=== PATIENT | female | born 1990 | race Caucasian/White ===

== ENCOUNTER 2020-03-27 12:24 | Outpatient (REF) | payer OTHER, SELFPAY ==
[2020-03-29 21:32] LABS: TS Negative Control Passed; TS Panel A 0; TS Panel B 1; TS Positive Control Passed; TSpotTB Negative (SeeBelow)
== END 2020-03-27 12:25 | disposition home or self-care (01) ==
LOC: HO.HMGCLDS 12:24
PROVIDERS: PCP Nurse Practitioner Family; Visit Provider Nurse Practitioner Family
DX: Z11.1 Encounter for screening for respiratory tuberculosis (principal)
CPT/HCPCS: 86481

== ENCOUNTER 2020-04-04 13:08 | Outpatient (REF) | payer OTHER, SELFPAY ==
--- NOTE | 2020-04-04 13:11 | XR_ITS ---
EXAMINATION: XR SHOULDER, LEFT CLINICAL INFORMATION: Left shoulder pain. COMPARISON: None. TECHNIQUE: AP external rotation, Grashey, scapular Y, and axillary views of the left shoulder. FINDINGS: The bones and soft tissues are normal. No fracture. Glenohumeral and acromioclavicular alignment is anatomic with normal joint space. No abnormal soft tissue calcifications. XR/XR shoulder LT min 2V IMPRESSION: Unremarkable examination.
== END 2020-04-04 13:09 | disposition home or self-care (01) ==
LOC: HO.HMGCX 13:08
PROVIDERS: PCP Nurse Practitioner Family; Visit Provider Nurse Practitioner Family
DX: M25.512 Pain in left shoulder (principal)
CPT/HCPCS: 73030

== ENCOUNTER 2020-04-04 14:00 | Outpatient (RCR) | payer OTHER, SELFPAY ==
--- NOTE | 2020-05-04 09:34 | MHC.PT.DC ---
[facility] [place] Office [place] [facility] [place] Office [address] Sharda Blunt [address] [phone] F: [phone] F: [phone] F: [phone] F: [phone] Physical Therapy Discharge Report Diagnosis: Neck pain Date of Surgery: NA Date of Evaluation: 01/11/20 Date of Discharge: 05/04/20 Treatments to Date: 16 Cancellations to Date: 1 No Shows to Date: 1 Discharge Status: Patient Elected to Stop Recommend MD Follow-up Discharge Summary: Patient without symptoms reported with traction but once in sitting reporting elbow symptoms on occasion and UT at the last tx session. Trialed stim again for B UT as she has a hard time relaxing with tx. As she has made little progress with PT I recommended holding at this time to see what MD suggests and what images say and patient in agreement. Kept chart open for 30 days. DC to HEP at this time. Electronically signed by: Raquel Monae PT Please sign and return to therapist. Thank you for your referral.
== END 2020-05-04 09:35 | disposition home or self-care (01) ==
LOC: HO.PTCHIC 14:00
PROVIDERS: PCP Nurse Practitioner Family; Visit Provider Nurse Practitioner Family
DX: M50.90 Cervical disc disorder, unspecified, unspecified cervical region (principal)
CPT/HCPCS: 97012; 97014; 97110; 97140; 97530

== ENCOUNTER 2020-04-26 14:10 | Outpatient (REF) | payer OTHER, SELFPAY ==
--- NOTE | 2020-04-26 14:13 | MR_ITS ---
EXAMINATION: MR CERVICAL SPINE WITHOUT CONTRAST CLINICAL INFORMATION: Spondylosis without myelopathy. COMPARISON: None TECHNIQUE: MRI of the cervical spine was obtained using routine sequences without contrast. Limited study with motion artifacts. FINDINGS: VERTEBRAL BODIES AND PARASPINAL SOFT TISSUES: The marrow signal is homogeneous. There are no compression fractures or subluxations. Mild reversal of the normal cervical lordosis evident. There is mild disc space narrowing with endplate spurring at the C5-C6 level. No marrow or soft tissue edema is visible. The paraspinal soft tissues are unremarkable. The imaged lung apices are grossly clear. CERVICOMEDULLARY JUNCTION AND VISUALIZED POSTERIOR FOSSA: The craniovertebral junction and imaged portions of the brain parenchyma appear normal. No cord signal abnormality or syrinx is seen. SPINAL LEVELS: C2-C3: Well-hydrated normal appearance of the disc. C3-C4: Very mild right lateral disc bulge and uncovertebral joint spurring without foraminal encroachment. C4-C5: No disc pathology evident. C5-C6: Large left posterolateral disc extrusion distorting the left ventrolateral aspect of the cord and likely impinging upon the left C6 nerve root with significant encroachment upon the left subarticular zone. No central canal stenosis. C6-C7: Shallow central disc protrusion and mild anterior endplate spurring. C7-T1: No disc abnormality evident. MR/MR cervical spine wo con IMPRESSION: Large left posterolateral disc extrusion at C5-C6 distorting the left ventrolateral aspect of the cord and likely impinging upon the left C6 nerve root. Shallow central disc protrusion and mild endplate spurring at C6-C7.
== END 2020-04-26 14:11 | disposition home or self-care (01) ==
LOC: HO.MRI 14:10
PROVIDERS: Visit Provider Nurse Practitioner Family
DX: M47.812 Spondylosis without myelopathy or radiculopathy, cervical region (principal); M54.12 Radiculopathy, cervical region
CPT/HCPCS: 72141

== ENCOUNTER 2020-10-17 18:49 | Outpatient (REF) | payer OTHER, SELFPAY ==
--- NOTE | ~2020-10-17 | MR_ITS ---
EXAMINATION: MR LUMBAR SPINE WITHOUT CONTRAST CLINICAL INFORMATION: Numbness, tingling. Bilateral leg pain, numbness, weakness. COMPARISON: Lumbar spine radiographs dated 08/05/2011. TECHNIQUE: MRI of the lumbar spine was obtained using routine sequences without contrast. FINDINGS: VERTEBRAL BODIES AND PARASPINAL STRUCTURES: Redemonstration of a transitional anatomy with partial lumbarization of the S1 vertebral body. This is similar when compared to the prior radiographs. The examination is labeled as such on a single image. The lumbar lordosis is maintained. No acute fracture or subluxation. No loss of vertebral body height. Mild loss of intervertebral disc height with disc desiccation at L5-S1. More mild disc desiccation at L4-L5. No marrow edema to suggest acute osseous injury. The visualized paraspinal soft tissues are unremarkable. CONUS MEDULLARIS AND CAUDA EQUINA: Normal, terminating at the level of L1. SPINAL LEVELS: T12-L1: No significant disc bulge. No central canal or neural foraminal stenosis. L1-L2: No significant disc bulge. No central canal or neural foraminal stenosis. L2-L3: No significant disc bulge. Bilateral facet arthropathy. Minimal bilateral neural foraminal stenosis. L3-L4: No significant disc bulge. Bilateral facet arthropathy. Minimal bilateral neural foraminal stenosis. L4-L5: Shallow disc bulge. Bilateral facet arthropathy and thickening of the ligamentum flavum which encroaches upon the traversing bilateral L5 nerve roots. Minimal bilateral neural foraminal stenosis. L5-S1: Broad-based disc bulge with posterior annular fissuring, prominent bilateral facet arthropathy, and thickening of the ligamentum flavum which causes [id number] central canal stenosis and encroaches upon the traversing bilateral S1 nerve roots in the lateral recesses. Mild bilateral neural foraminal stenosis. S1-S2: Minimal disc bulge with mild bilateral facet arthropathy. No significant central canal or neural foraminal stenosis. MR/MR lumbar spine wo con IMPRESSION: 1. 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 2. Broad-based disc bulge at L5-S1 with posterior annular fissuring, prominent bilateral facet arthropathy, and thickening of the ligamentum flavum causing [id number] central canal stenosis encroaching upon the traversing bilateral S1 nerve roots. Additionally, there is mild bilateral neural foraminal stenosis. 3. Shallow disc bulge and bilateral facet arthropathy at L4-L5 with thickening of the ligamentum flavum which encroaches upon the traversing bilateral L5 nerve roots and causes minimal bilateral neural foraminal stenosis. 4. Bilateral facet arthropathy at L2-L3 and L3-L4 with minimal bilateral neuroforaminal stenosis. 5. Minimal disc bulge at S1-S2 with mild bilateral facet arthropathy. No central canal or neural foraminal stenosis.
== END 2020-10-17 18:50 | disposition home or self-care (01) ==
LOC: HO.MRI 18:49
PROVIDERS: Visit Provider Hospitalist
DX: R20.2 Paresthesia of skin (principal)
CPT/HCPCS: 72148

== ENCOUNTER 2020-11-20 09:59 | Outpatient (REF) | payer OTHER, SELFPAY ==
[2020-11-20 11:06] LABS: MANUAL DIFF FLAG NO
[2020-11-20 11:21] LABS: Basophils Percent Auto 0.3 % (0-2); Eosinophils Absolute Auto 0.2 X10*3/uL (0.0-0.4); Eosinophils Percent Auto 1.8 % (0-4); Hematocrit 37.4 % (37-47); Hemoglobin 12.1 g/dl (12.0-16.0); Imm Gran Abs Auto 0.05 X10*3/uL (0.00-0.03); Imm Gran Pct Auto 0.5 % (0.0-0.4); Lymphocytes Absolute Auto 2.2 X10*3/uL (1.2-4.9); Lymphocytes Percent Auto 20.2 % (20-40); Mean Corpuscular HGB Conc 32.4 g/dl (31.0-35.0); Mean Corpuscular Hemoglobin 29.9 pg (27.0-33.0); Mean Corpuscular Volume 92.3 fL (80-98); Mean Platelet Volume 12.3 fL (9.4-12.3); Monocytes Absolute Auto 0.6 X10*3/uL (0.1-1.2); Monocytes Percent Auto 5.4 % (2-11); Neutrophils Absolute Auto 7.7 X10*3/uL (2.0-8.3); Neutrophils Percent Auto 71.8 % (45-73); Platelet Count 234 X10*3/uL (160-400); Red Blood Count 4.05 X10*6/uL (4.20-5.50); Red Cell Distribution Width 11.8 % (11.0-16.0); White Blood Count 10.7 X10*3/uL (4.8-10.8)
[2020-11-20 11:30] LABS: Alanine Aminotransferase 10 U/L (0-31); Albumin Level 4.2 g/dL (3.5-5.0); Alkaline Phosphatase 62 U/L (39-117); Anion Gap 10 (12-20); Aspartate Amino Transferase 13 U/L (5-31); Bilirubin Total 0.3 mg/dL (0.0-1.0); Blood Urea Nitrogen 10 mg/dL (9-16); Calcium 8.8 mg/dL (8.4-10.2); Carbon Dioxide 26 mmol/L (22-29); Chloride 106 mmol/L (96-108); Cholesterol 117 mg/dL; Estimated Glomerular Filt Rate > 60; Glucose Fasting 88 mg/dL (60-99); HDL Cholesterol 47 mg/dL; Iron 61 mcg/dL (30-160); LDL Cholesterol Calculated 59 mg/dl; Percent Iron Saturation 18 % (15-50); Potassium 4.2 mmol/L (3.3-5.1); Sodium 138 mmol/L (135-145); Total Iron Binding Capacity 336 mcg/dL (228-428); Total Protein 7.5 g/dL (6.5-8.0); Triglycerides 59 mg/dL; Unsaturated Iron Binding 275 ug/dL
[2020-11-20 11:54] LABS: Ferritin 65 ng/mL (10-122); Vitamin D 25-OH Total 22.8 ng/mL (>30)
[2020-11-20 11:59] LABS: Folate 13.1 ng/mL (> or = 4.0); Vitamin B12 258 pg/mL (200-900)
== END 2020-11-20 10:00 | disposition home or self-care (01) ==
LOC: HO.HMGCLDS 09:59
PROVIDERS: PCP Nurse Practitioner Family; Visit Provider Nurse Practitioner Family
DX: Z00.00 Encounter for general adult medical examination without abnormal findings (principal); R53.83 Other fatigue
CPT/HCPCS: 36415; 80053; 80061; 82306; 82607; 82728; 82746; 83540; 84443; 85025

== ENCOUNTER 2021-01-22 09:04 | Outpatient (REF) | payer OTHER, SELFPAY ==
[2021-01-25 16:31] LABS: TS Negative Control Passed; TS Panel A 1; TS Panel B 1; TS Positive Control Passed; TSpotTB Negative (SeeBelow)
== END 2021-01-22 09:05 | disposition home or self-care (01) ==
LOC: HO.HMGCLDS 09:04
PROVIDERS: PCP Nurse Practitioner Family; Visit Provider Nurse Practitioner Family
DX: Z11.1 Encounter for screening for respiratory tuberculosis (principal)
CPT/HCPCS: 36415; 86481

== ENCOUNTER 2021-11-13 10:18 | Outpatient (REF) | payer OTHER, SELFPAY ==
[2021-11-13 11:16] LABS: MANUAL DIFF FLAG NO
[2021-11-13 11:25] LABS: Basophils Percent Auto 0.2 % (0-2); Eosinophils Absolute Auto 0.2 X10*3/uL (0.0-0.4); Eosinophils Percent Auto 1.9 % (0-4); Hemoglobin 12.5 g/dl (12.0-16.0); Imm Gran Abs Auto 0.04 X10*3/uL (0.00-0.03); Imm Gran Pct Auto 0.4 % (0.0-0.4); Lymphocytes Absolute Auto 2.5 X10*3/uL (1.2-4.9); Lymphocytes Percent Auto 22.6 % (20-40); Mean Corpuscular HGB Conc 32.9 g/dl (31.0-35.0); Mean Corpuscular Hemoglobin 29.6 pg (27.0-33.0); Mean Corpuscular Volume 89.8 fL (80.0-98.0); Mean Platelet Volume 11.9 fL (9.4-12.3); Monocytes Absolute Auto 0.5 X10*3/uL (0.1-1.2); Monocytes Percent Auto 4.7 % (2-11); Neutrophils Absolute Auto 7.6 x10*3/uL (2.0-8.3); Neutrophils Percent Auto 70.2 % (45-73); Platelet Count 244 X10*3/uL (160-400); Red Blood Count 4.23 X10*6/uL (4.20-5.50); Red Cell Distribution Width 11.9 % (11.0-16.0); White Blood Count 10.8 X10*3/uL (4.8-10.8)
[2021-11-13 11:31] LABS: Appearance Urine CLEAR; Color Urine YELLOW; Glucose Urine UA NEG (NEG); Leukocyte Esterase Urine TRACE (NEG); Nitrite Urine NEG (NEG); UACC Culture Trigger NO; Urine Blood TRACE (NEG); Urine Ketones NEG (NEG); Urine Protein NEG (NEG-TRACE)
[2021-11-13 11:46] LABS: Bacteria Urine 3+ /LPF; RBC Urine 0-2 /HPF (0); Squamous Epithelial Cell Urine 3+ /LPF
[2021-11-13 11:56] LABS: Alanine Aminotransferase 14 U/L (0-31); Albumin Level 4.7 g/dL (3.5-5.0); Alkaline Phosphatase 78 U/L (39-117); Anion Gap 12 (12-20); Aspartate Amino Transferase 15 U/L (5-31); Bilirubin Total 0.5 mg/dL (0.0-1.0); Blood Urea Nitrogen 11 mg/dL (9-16); Calcium 9.1 mg/dL (8.4-10.2); Carbon Dioxide 24 mmol/L (22-29); Chloride 106 mmol/L (96-108); Cholesterol 121 mg/dL; Estimated Glomerular Filt Rate > 60; Glucose Fasting 84 mg/dL (60-99); HDL Cholesterol 46 mg/dL; LDL Cholesterol Calculated 60 mg/dl; Potassium 4.4 mmol/L (3.3-5.1); Sodium 138 mmol/L (135-145); Total Protein 8.2 g/dL (6.5-8.0); Triglycerides 75 mg/dL
[2021-11-13 12:18] LABS: TSH reflex Free T4 2.22 uIU/mL (0.32-4.0); Vitamin D 25-OH Total 28.6 ng/mL (>30)
== END 2021-11-13 10:19 | disposition home or self-care (01) ==
LOC: HO.HMGCLDS 10:18
PROVIDERS: PCP Nurse Practitioner Family; Visit Provider Nurse Practitioner Family
DX: Z00.00 Encounter for general adult medical examination without abnormal findings (principal); E55.9 Vitamin D deficiency, unspecified
CPT/HCPCS: 36415; 80053; 80061; 81001; 82306; 84443; 85025

== ENCOUNTER 2022-01-17 14:48 | Outpatient (REF) | payer OTHER, SELFPAY ==
--- NOTE | ~2022-01-17 | US_ITS ---
EXAMINATION: US PELVIS CLINICAL INFORMATION: Pelvic and perineal pain COMPARISON: None TECHNIQUE: Ultrasound of the pelvis is performed using both transabdominal and transvaginal transducers along with Doppler. Transvaginal imaging is performed due to inadequate visualization transabdominally. FINDINGS: Uterus: The uterus is anteverted and measures 8.3 x 3.9 x 4.5 cm. No focal abnormality except for a single small 6 to 7 mm fibroid. The double wall endometrial thickness is 5 mm. The uterus is smooth in contour and has normal myometrial echogenicity. Adnexa: Both ovaries are visualized. There is normal color flow to the adnexa. There is no ovarian torsion. There is no pelvic ascites or fluid collection. Right ovary measures 2.8 x 2.0 x 2.4 cm. 7.2 mL. Left ovary measures 2.6 x 2.2 x 2.2 cm. 6.7 mL. There is a small simple appearing left ovarian follicle. US/US pelvic and transvaginal IMPRESSION: Small uterine fibroid. Otherwise unremarkable pelvic ultrasound examination.
--- NOTE | ~2022-01-17 | XR_ITS ---
EXAMINATION: XR CHEST CLINICAL INFORMATION: Cough COMPARISON: 01/11/2016 TECHNIQUE: 2 views of the chest were obtained. FINDINGS: No significant abnormality is noted involving the heart, lungs, mediastinum, bony thorax or soft tissues. XR/XR chest 2V IMPRESSION: Unremarkable examination.
== END 2022-01-17 14:49 | disposition home or self-care (01) ==
LOC: HO.HMGCX 14:48
PROVIDERS: PCP Nurse Practitioner Family; Visit Provider Physician Assistant Medical
DX: R10.2 Pelvic and perineal pain (principal); R05.9 Cough, unspecified
CPT/HCPCS: 71046; 76830; 76856

== ENCOUNTER 2022-11-05 08:58 | Outpatient (AMB) | payer OTHER, SELFPAY ==
--- NOTE | 2022-11-05 09:00 | A.OFFPC_ITS ---
Vital Signs 11/05/22 09:01 Height 5 ft 2 in Weight 230 lb 8 oz BMI 42.2 BP 130/82 Blood Pressure Location Rt brachial Position Sitting Pulse 70 Pulse Source Pulse Oximeter Pulse Oximetry (%) 100 Oxygen Delivery Method Room Air Intake Visit Reasons: Annual PE Allergies No Known Allergies [No Known Allergies*] Allergy (Verified 11/05/22 09:28) Medication List - Last Reconciled 11/05/22 by PIPO Dia clonidine HCl 0.1 mg PO BEDTIME meloxicam 15 mg PO DAILY PRN 30 days sertraline 50 mg PO DAILY tizanidine 4 mg PO BEDTIME PRN 20 days Tobacco use date assessed: 11/05/22 Dental Screening Dental Screen Date: 11/05/22 Did you have a dental visit in the last 12 months?: No Did you have a dental problem in the last 6 months where you did not have access to dental care?: No Was dental information given to patient?: Patient has dentist HPI Annual PE HPI Details Pt is here for a PE. Will order labs. 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 Brother No problems noted. Brother No problems noted. Maternal Aunt Mental health disorder Maternal Uncle Mental health disorder Social History Housing: Apartment Alcohol intake: never Patient Tobacco Use Status: Never used Tobacco e-Cigarette/Vaping Use: Never Used Second Hand Smoke Exposure: No service: No Current occupational status: employed Current occupation: [employer] Current occupational exposures/hazards: Yes Cognitive needs: No Hearing needs: No Vision needs: No Questionnaire Thrive Questionnaire Date Thrive assessed: 09/20/21 I am a: Patient What is your living situation today?: I have a steady place to live Within the past 12 months, did the food you bought not last and you didn't have the money to get more?: Never true Within the past 12 months, did you worry whether your food would run out before you got money to buy more?: Never true Please select the resources that you would like help with: None AUDIT C Alcohol Use Questionnaire (AUDIT-C) 1. How often do you have a drink containing alcohol?: 2-4 times a month 2. How many drinks containing alcohol do you have on a typical day when you are drinking?: 3 or 4 3. How often do you have six or more drinks on one occasion?: Less than monthly Total Score: 4 DARRELL-7 AMB Questionnaire DARRELL-7 Date DARRELL - 7 assessed: 09/20/21 Feeling nervous, anxious, or on edge: 1 = Several days Not being able to stop or control worryin = Several days Worrying too much about different things: 2 = More than half the days Trouble relaxin = Nearly every day Being so restless that it is hard to sit still: 2 = More than half the days Becoming easily annoyed or irritable: 2 = More than half the days Feeling afraid as if something awful might happen: 1 = Several days Total DARRELL-7 score (0-4 normal; 5-9 mild; 10-14 moderate; 15-21 severe): 12 Source: Developed by Drs. Riaz Pickens, Geraldine So, Demetris Hoffmann and colleagues, with an educational marsha from [employer]. Review of Systems Const Denies chills and Denies fever(s) Eyes Denies blurry vision ENT Denies vertigo, Denies dizziness and Denies sore throat Card Denies chest pain at rest, Denies chest pain with activity, Denies diaphoresis, Denies dyspnea and Denies dyspnea on exertion Resp Denies cough, Denies dyspnea, Denies dyspnea on exertion and Denies wheezing GI Denies abdominal pain, Denies melena, Denies hematochezia, Denies constipation, Denies diarrhea and Denies loose stools Denies hematuria Musc Denies numbness and Denies tingling Skin/Breast Denies lesions Neuro Denies vertigo, Denies dizziness, Denies numbness and Denies tingling Psych Denies anxiety, Denies depression, Denies homicidal ideation, Denies suicidal ideation and Denies other (substance abuse) Aller/Immun Denies wheezing Physical exam (Primary Care) Vital Signs: Last Vital Signs Pulse 70 11/05/22 09:01 BP 130/82 11/05/22 09:01 Pulse Ox 100 11/05/22 09:01 Oxygen Delivery Method Room Air 11/05/22 09:01 BMI result Body Mass Index 42.2 Tobacco/Smoking Status: Tobacco use Status Tobacco use date assessed 11/05/22 11/05/22 09:07 Patient Tobacco Use Status Never used Tobacco 11/05/22 09:07 e-Cigarette/Vaping Use Never Used 11/05/22 09:07 Thrive Assessment: Date of Thrive Assessment Date Thrive assessed 09/20/21 11/05/22 09:07 Const General: cooperative Nutritional Appearance: obese morbidly obese Orientation/consciousness: patient oriented x3 HENMT Head: Yes normal to inspection, Yes normocephalic and Yes atraumatic Ears: TM's normal bilaterally Eyes General: appearance normal, both eyes and all related structures Alignment and Position: alignment normal and position normal Neck Neck: Yes normal visual inspection and Yes no lymphadenopathy Thyroid: Thyroid normal Resp Effort & Inspection: normal respiratory effort Auscultation: clear to auscultation bilaterally Cardio Rate: regular rate Rhythm: regular rhythm Heart sounds: S1 normal heart sound present, S2 normal heart sound present and Murmur heart sound present systolic GI Palpation (GI): Soft to palpation and nontender Auscultation: normal bowel sounds Skin Rashes: no rashes Neuro General: patient oriented x3, moves all extremities, no focal motor deficits and deep tendon reflexes 2+ bilaterally Romberg Test: Negative Psych Appearance: grossly normal Mental Status: mental status grossly normal Speech and movement: Normal speech and movement present Affect: normal affect Attitude: cooperative Thought process: Normal thought process present Thought content: Normal thought content present Insight: Good insight present (Psych) Judgement: Good judgement present (Psych) Assessment and Plan Assessment & Plan (1) Physical exam: Code(s): Z00.00 - Encounter for general adult medical examination without abnormal f indings Plan: Labs ordered (2) Systolic murmur: Code(s): R01.1 - Cardiac murmur, unspecified Plan: Echo ordered Plan The patient agreed to the use of a director of graduate medical education for this encounter. Scribed for PIPO Snyder by Essie Asher director of graduate medical education, on 11/05/2022 at 09:20 EST. Orders: Orders Comprehensive [place]. Panel Fast Today Z00.00 - Encounter for general adult medical examination without abnormal findings Lipid Panel Today Z00.00 - Encounter for general adult medical examination without abnormal findings TSH reflex Free T4 Today Z00.00 - Encounter for general adult medical examination without abnormal findings Complete Blood Count Auto Diff Today Z00.00 - Encounter for general adult medical examination without abnormal findings UA CC w/rflx Micro + Cult Today Z00.00 - Encounter for general adult medical examination without abnormal findings CA echo transthoracic complete Today R01.1 - Cardiac murmur, unspecified Coding Level of Care Code Est Pt Prev Care 18-39y(51826) Diagnoses Physical exam Z00.00 Systolic murmur R01.1
[2022-11-05 09:01] VITALS: BP 130/82; PULSE 70; O2SAT 100; BMI 42.2
== END 2022-11-05 10:24 | disposition home or self-care (01) ==
PROVIDERS: PCP Nurse Practitioner Family; Visit Provider Nurse Practitioner Family
DX: Z00.00 Encounter for general adult medical examination without abnormal findings (principal); R01.1 Cardiac murmur, unspecified
CPT/HCPCS: 99395

== ENCOUNTER → 2022-12-06 09:33 | Outpatient (REF) | payer OTHER, SELFPAY ==
--- NOTE | 2022-12-06 09:39 | CA_ITS ---
Transthoracic Echocardiogram Patient (Last, First, Middle): Teresa Silva, Gender: Female Date of : 1990 Age: 32 Procedure Date: 12/06/2022 Procedure Type: Transthoracic Echocardiogram Location: OP Height: 157.48 cm Weight: 102.97 kg BSA: 2.02 m2 Heart Rate: 63 bpm BP: 150 / 90 mmHg Programming Intern: ALFREDO Referring MD: Ry Lemos [facility] Symptoms: R01.1 - Cardiac murmur, unspecified Study Quality: Fair ECG Rhythm: Arrhythmia Conclusions: - Normal right ventricular cavity size and systolic function. - Mildly increased left ventricular cavity size. There is mildly increased left ventricular wall thickness. The left ventricular systolic function is normal. The visually estimated ejection fraction is between 55-60%. There is no evidence of regional wall motion abnormalities. Diastolic function is normal for age. Findings Left Ventricle Mildly increased left ventricular cavity size. There is mildly increased left ventricular wall thickness. The left ventricular systolic function is normal. The visually estimated ejection fraction is between 55-60%. There is no evidence of regional wall motion abnormalities. Diastolic function is normal for age. Right Ventricle Normal right ventricular cavity size and systolic function. Atria The left atrium is normal in size. The right atrium is normal in size. Aortic Valve Normal aortic valve structure and function. There is no aortic valve stenosis. There is no aortic valve regurgitation. Mitral Valve Normal mitral valve structure and function. There is no mitral valve regurgitation. There is no mitral valve stenosis. Pulmonic Valve Normal pulmonic valve structure and function. There is no pulmonic valve regurgitation. Tricuspid Valve Normal tricuspid valve structure. There is no tricuspid valve regurgitation. Normal right atrial pressure. There is no evidence of pulmonary hypertension. Great Vessels All visible segments of the aorta are normal in size. The visualized portions of the pulmonary artery and branches are normal. Venous The inferior vena cava is normal in size and collapses greater than 50% with inspiration. Pericardium/Pleural There is no evidence of pericardial effusion. Prior Study Comparison Changes noted compared to prior study dated: 04/25/2017. Measurements 2D Linear Measurements IVSd: 1.10 0.6-0.9/0.6-1.0 cm LVIDd: 5.00 3.9-5.3/4.2-5.9 cm LVIDd Index: 2.48 2.4-3.2/2.2-3.1 cm/m2 LVIDs: 2.80 2.0-3.6 cm LVPWd: 1.00 0.7-1.1 cm LA Diam: 3.50 2.7-3.8/3.0-4.0 cm LAIDs Index: 1.73 1.5-2.3 cm/m2 LV Mass: 242.23 67-162/88-224 g LV Mass Index: 119.91 43-95/49-115 g/m2 LVOT Diam: 1.90 3.0+(-)1.3 cm 2D Systolic Function EF 4C: 54.10 >55% EF 2C: 75.60 >55% EF BiP: 64.50 >55% Mitral Valve MV Pk E: 1.18 MV PK A: 0.56 MV Decel Time: 167.00 E/A: 2.10 E'Lateral: 11.50 E'Medial: 10.10 E/E' Med: 11.70 E/E' Lat: 10.30 PHT: 49.00 MVA PHT: 4.49 Decel Rogers: 7.08 Aortic Valve AoV Pk Abel: 1.43 AoV Mn Abel: 1.04 AoV VTI: 0.31 AoV Pk Grad: 8.00 Aov Mn Grad: 5.00 SVETLANA Cont.VTI: 1.92 LVOT LVOT Pk Abel: 0.93 LVOT Mn Abel: 0.70 LVOT VTI: 0.21 LVOT Pk Grad: 3.00 LVOT Mn Grad: 2.00 LVOT Diam: 1.90 LVOT Area: 2.84 Diastolic Function MV Pk E: 1.18 MV Pk A: 0.56 E/A: 2.10 E'Medial: 10.10 E/E' Med: 11.70 E' Laterial: 11.50 E/E' Lat: 10.30 Right Ventricle TAPSE (mm): 18.70 TVS' Abel: 11.90 Tricuspid Valve TR Pk Abel: 1.92 TR Pk Grad: 15.00 RA Press: 8.00 RVSP: 23.00 Great Vessels Aorta Sinus of Valsalva: 3.10 2.0-3.5 cm Ao Asc: 3.20 2.1-3.4 cm Pulmonary Valve PV Pk Abel: 1.09 Peak PV Grad: 5.00 Updated in Other Vendor System with Status of Final Brian Gomez MD electronically signed on 12/08/2022 5:27:19 PM with status of Final
[2022-12-06 09:51] LABS: MANUAL DIFF FLAG NO
[2022-12-06 10:29] LABS: Basophils Percent Auto 0.2 % (0-2); Eosinophils Absolute Auto 0.2 X10*3/uL (0.0-0.4); Eosinophils Percent Auto 1.7 % (0-4); Hematocrit 37.5 % (37.0-47.0); Hemoglobin 12.3 g/dl (12.0-16.0); Imm Gran Abs Auto 0.03 X10*3/uL (0.00-0.03); Imm Gran Pct Auto 0.3 % (0.0-0.4); Lymphocytes Absolute Auto 2.8 X10*3/uL (1.2-4.9); Lymphocytes Percent Auto 26.2 % (20-40); Mean Corpuscular HGB Conc 32.8 g/dl (31.0-35.0); Mean Corpuscular Volume 91.5 fL (80.0-98.0); Mean Platelet Volume 11.8 fL (9.4-12.3); Monocytes Absolute Auto 0.5 X10*3/uL (0.1-1.2); Monocytes Percent Auto 5.1 % (2-11); Neutrophils Percent Auto 66.5 % (45-73); Platelet Count 222 X10*3/uL (160-400); Red Cell Distribution Width 11.8 % (11.0-16.0); White Blood Count 10.5 X10*3/uL (4.8-10.8)
[2022-12-06 11:21] LABS: Appearance Urine Clear; Color Urine Yellow; Glucose Urine UA Negative (Negative); Leukocyte Esterase Urine Small (1+) (Negative); Nitrite Urine Negative (Negative); Specific Gravity - Urine 1.025 (1.005-1.025); UMIC TRIGGER UACC YES; Urine Blood Negative (Negative); Urine Ketones Negative (Negative); Urine Protein Negative (Neg-Trace)
[2022-12-06 11:23] LABS: Alanine Aminotransferase 18 U/L (0-31); Albumin Level 4.3 g/dL (3.5-5.0); Alkaline Phosphatase 66 U/L (39-117); Anion Gap 11 (12-20); Aspartate Amino Transferase 21 U/L (5-31); Bilirubin Total 0.4 mg/dL (0.0-1.0); Blood Urea Nitrogen 10 mg/dL (9-16); Calcium 9.2 mg/dL (8.4-10.2); Carbon Dioxide 23 mmol/L (22-29); Chloride 109 mmol/L (96-108); Cholesterol 111 mg/dL; Estimated Glomerular Filt Rate > 60; Glucose Fasting 94 mg/dL (60-99); HDL Cholesterol 46 mg/dL; LDL Cholesterol Calculated 57 mg/dl; Potassium 4.2 mmol/L (3.3-5.1); Sodium 139 mmol/L (135-145); Total Protein 7.9 g/dL (6.5-8.0); Triglycerides 43 mg/dL
[2022-12-06 11:24] LABS: Bacteria Urine Trace (None Seen); Hyaline Casts Urine 0-2 /LPF (0-2); RBC Urine 0-2 /HPF (0-2); UACC Culture Trigger YES
[2022-12-06 11:40] LABS: TSH reflex Free T4 2.08 uIU/mL (0.32-4.0)
== END ==
LOC: HO.CARD 09:33
PROVIDERS: PCP Nurse Practitioner Family; Visit Provider Nurse Practitioner Family
DX: R01.1 Cardiac murmur, unspecified (principal); Z00.00 Encounter for general adult medical examination without abnormal findings
CPT/HCPCS: 36415; 80053; 80061; 81001; 84443; 85025; 87086; 93306

== ENCOUNTER → 2022-12-06 09:39 | Outpatient (BNV) | payer OTHER, SELFPAY | PROVIDERS: PCP Nurse Practitioner Family; Visit Provider Internal Medicine Cardiovascular Disease | DX: R01.1 Cardiac murmur, unspecified (principal) | CPT/HCPCS: 93306 ==

== ENCOUNTER 2023-05-08 09:25 | Outpatient (AMB) | payer OTHER, SELFPAY ==
--- NOTE | 2023-05-08 09:26 | A.OFFPC_ITS ---
Vital Signs 05/08/23 09:29 Weight 240 lb BP 120/84 Blood Pressure Location Lt brachial Position Sitting Pulse 88 Pulse Source Pulse Oximeter Pulse Oximetry (%) 98 Oxygen Delivery Method Room Air Intake Visit Reasons: 6 Month follow up Intake Note: Patient here to follow up on back issues. States she been getting a lot of right hip pain when standing too long. Allergies No Known Allergies [No Known Allergies*] Allergy (Verified 05/08/23 09:30) Medication List - Last Reconciled 05/08/23 by PIPO Dia clonidine HCl 0.1 mg PO BEDTIME meloxicam 15 mg PO DAILY PRN 30 days sertraline 50 mg PO DAILY tizanidine 4 mg PO BEDTIME PRN 20 days Tobacco use date assessed: 05/08/23 Dental Screening Dental Screen Date: 05/08/23 Did you have a dental visit in the last 12 months?: Yes Did you have a dental problem in the last 6 months where you did not have access to dental care?: No Was dental information given to patient?: Patient has dentist HPI 6 Month follow up HPI Details obesity: seeing a bariatric specialist for this, going through their program. She plans to have a gastric sleeve. Pt has a therapist and a psychiatrist. Denies any SI and HI. She reports intermittent sciatica. Will send gabapentin to help with pain and sleep. Hoping the surgery will help with her pains, though suggested a stretching routine and warm moist heat [facility] Medical History (Updated 05/08/23 @ 10:08 by PIPO Dia) Left shoulder pain Obesity Chronic fatigue Eczema GERD (gastroesophageal reflux disease) PCOS (polycystic ovarian syndrome) DDD (degenerative disc disease), cervical Depression with anxiety Surgical History History of gynecologic surgery History of section History of wisdom tooth extraction Family History Father HTN (hypertension) Mother HTN (hypertension) Brother No problems noted. Brother No problems noted. Brother No problems noted. Maternal Aunt Mental health disorder Maternal Uncle Mental health disorder Social History Housing: Apartment Alcohol intake: never Patient Tobacco Use Status: Never used Tobacco e-Cigarette/Vaping Use: Never Used Second Hand Smoke Exposure: No service: No Current occupational status: employed Current occupation: [employer] Current occupational exposures/hazards: Yes Cognitive needs: No Hearing needs: No Vision needs: No Questionnaire Thrive Questionnaire Date Thrive assessed: 09/20/21 I am a: Patient What is your living situation today?: I have a steady place to live Within the past 12 months, did the food you bought not last and you didn't have the money to get more?: Never true Within the past 12 months, did you worry whether your food would run out before you got money to buy more?: Never true Please select the resources that you would like help with: None AUDIT C Alcohol Use Questionnaire (AUDIT-C) 1. How often do you have a drink containing alcohol?: 2-4 times a month 2. How many drinks containing alcohol do you have on a typical day when you are drinking?: 7 to 9 3. How often do you have six or more drinks on one occasion?: Less than monthly Total Score: 6 DARRELL-7 AMB Questionnaire DARRELL-7 Date DARRELL - 7 assessed: 09/20/21 Feeling nervous, anxious, or on edge: 2 = More than half the days Not being able to stop or control worryin = More than half the days Worrying too much about different things: 3 = Nearly every day Trouble relaxin = More than half the days Being so restless that it is hard to sit still: 2 = More than half the days Becoming easily annoyed or irritable: 2 = More than half the days Feeling afraid as if something awful might happen: 1 = Several days Total DARRELL-7 score (0-4 normal; 5-9 mild; 10-14 moderate; 15-21 severe): 14 Source: Developed by Drs. Riaz Pickens, Geraldine So, Demetris Hoffmann and colleagues, with an educational marsha from [employer]. Review of Systems Const Reports as per HPI Physical exam (Primary Care) Vital Signs: Last Vital Signs Pulse 88 05/08/23 09:29 BP 120/84 05/08/23 09:29 Pulse Ox 98 05/08/23 09:29 Oxygen Delivery Method Room Air 05/08/23 09:29 Tobacco/Smoking Status: Tobacco use Status Tobacco use date assessed 05/08/23 05/08/23 09:32 Patient Tobacco Use Status Never used Tobacco 05/08/23 09:27 e-Cigarette/Vaping Use Never Used 05/08/23 09:27 Thrive Assessment: Date of Thrive Assessment Date Thrive assessed 09/20/21 05/08/23 09:27 Const General: cooperative Nutritional Appearance: obese Orientation/consciousness: patient oriented x3 Resp Effort & Inspection: normal respiratory effort Auscultation: clear to auscultation bilaterally Cardio Rate: regular rate Rhythm: regular rhythm Heart sounds: S1 normal heart sound present, S2 normal heart sound present and Murmur heart sound present systolic Neuro General: patient oriented x3 Psych Appearance: grossly normal Mental Status: mental status grossly normal Speech and movement: Normal speech and movement present Affect: normal affect Attitude: cooperative Thought process: Normal thought process present Thought content: Normal thought content present Insight: Good insight present (Psych) Judgement: Good judgement present (Psych) Assessment and Plan Assessment & Plan (1) Obesity: Code(s): E66.9 - Obesity, unspecified Plan: continue with bariatric specialist. (2) Sciatica: Code(s): M54.30 - Sciatica, unspecified side Plan: gabapentin started at night Plan The patient agreed to the use of a biomedical engineering internship for this encounter. Scribed for PIPO Snyder by Essie Asher biomedical engineering internship, on 05/08/2023 at 09:40 EST. Medications: New gabapentin 100 mg PO BEDTIME 90 caps 0RF Coding Level of Care Code Est Pt Level 3 (10262) Diagnoses Obesity E66.9 Sciatica M54.30
[2023-05-08 09:29] VITALS: BP 120/84; PULSE 88; O2SAT 98
== END 2023-05-08 11:03 | disposition home or self-care (01) ==
PROVIDERS: PCP Nurse Practitioner Family; Visit Provider Nurse Practitioner Family
DX: M54.30 Sciatica, unspecified side (principal); E66.9 Obesity, unspecified
CPT/HCPCS: 99213

== ENCOUNTER 2023-05-22 13:26 | Outpatient (REF) | payer OTHER, SELFPAY ==
[2023-05-22 16:38] LABS: Appearance Urine Hazy; Color Urine Yellow; Glucose Urine UA 100 mg/dL (Negative); Leukocyte Esterase Urine Trace (Negative); Nitrite Urine Positive (Negative); PH 5.5 (5.0-9.0); Specific Gravity - Urine 1.025 (1.005-1.025); UMIC TRIGGER UACC YES; Urine Blood Trace (Negative); Urine Ketones Negative (Negative); Urine Protein 30 (1+) mg/dL (Neg-Trace)
[2023-05-22 16:48] LABS: Bacteria Urine 4+ (None Seen); Hyaline Casts Urine 0-2 /LPF (0-2); RBC Urine 0-2 /HPF (0-2); Squamous Epithelial Cell Urine 0-2 /HPF (0-2); UACC Culture Trigger YES; WBC Urine >50 /HPF (0-5)
== END 2023-05-22 13:27 | disposition home or self-care (01) ==
LOC: HO.HMGCLDS 13:26
PROVIDERS: PCP Nurse Practitioner Family; Visit Provider Nurse Practitioner Family
DX: R30.0 Dysuria (principal)
CPT/HCPCS: 81001; 87086; 87088; 87186

== ENCOUNTER 2023-07-17 13:32 | Outpatient (AMB) | payer OTHER, SELFPAY ==
--- NOTE | 2023-07-17 13:40 | MHC.PC.OV ---
Vital Signs 07/17/23 13:44 Height 5 ft 2 in Weight 240 lb BMI 43.9 BP 130/82 Blood Pressure Location Lt brachial Position Sitting Pulse 80 Pulse Source Pulse Oximeter Pulse Oximetry (%) 98 Oxygen Delivery Method Room Air Intake Visit Reasons: [facility] ER followup-Ry's pt Intake Note: pt is here for [facility] ER due to chest tightness, SOB. patient states they told her it was acid reflux, ekg and labs done stating it was all normal Manager Fund Required: No Allergies No Known Allergies [No Known Allergies*] Allergy (Verified 07/17/23 13:46) Medication List - Last Reconciled 07/17/23 by PIPO Dia buspirone 5 mg PO BID 30 days clonidine HCl 0.1 mg PO BEDTIME gabapentin 100 mg PO BEDTIME sertraline 50 mg PO DAILY Tobacco use date assessed: 07/17/23 Dental Screening Dental Screen Date: 07/17/23 Did you have a dental visit in the last 12 months?: Yes Did you have a dental problem in the last 6 months where you did not have access to dental care?: No Was dental information given to patient?: Patient has dentist HPI [facility] ER followup-Ry's pt HPI Details Pt was seen in the ER on 07/13 c/o chest pain, epigastric discomfort, and nausea. EKG was nonischemic. Serial troponin was WNL. Chest XR was negative. Pt's nausea improved with zofran. She was given maalox to treat potential GERD which helped her symptoms. Today, pt reports ongoing chest discomfort. She reports that the pain is reproducible with touch and deep breathing. Pt reports some shortness of breath as well. I do think this is more stress/anxiety related/costrochondritis, though I will rule out cardiac or pulmonary causes. EKG in office is benign. Will also order stress test and PFT testing. Will start buspirone 5mg bid. She will contact me via portal with how she is doing in the next week or two. Denies fever, chills, wheezing, and dizziness. NOTE: please see echo, recommend watching her BP as well PFSH Medical History (Updated 07/17/23 @ 14:07 by PIPO Dia) Left shoulder pain Obesity Chronic fatigue Eczema GERD (gastroesophageal reflux disease) PCOS (polycystic ovarian syndrome) DDD (degenerative disc disease), cervical Depression with anxiety Surgical History History of gynecologic surgery History of section History of wisdom tooth extraction Family History Father HTN (hypertension) Mother HTN (hypertension) Brother No problems noted. Brother No problems noted. Brother No problems noted. Maternal Aunt Mental health disorder Maternal Uncle Mental health disorder Social History Housing: Apartment Alcohol intake: never Patient Tobacco Use Status: Never used Tobacco e-Cigarette/Vaping Use: Never Used Second Hand Smoke Exposure: No service: No Current occupational status: employed Current occupation: [employer] Current occupational exposures/hazards: Yes Cognitive needs: No Hearing needs: No Vision needs: No Questionnaire PHQ-9 Over the last 2 weeks, how often have you been bothered by any of the following problems? 1. Little interest or pleasure in doing things: several days 2. Feeling down, depressed, or hopeless: more than half the days 3. Trouble falling or staying asleep, or sleeping too much: more than half the days 4. Feeling tired or having little energy: more than half the days 5. Poor appetite or overeating: not at all 6. Feeling bad about yourself - or that you are a failure or have let yourself or your family down: several days 7. Trouble concentrating on things, such as reading the newspaper or watching television: several days 8. Moving or speaking so slowly that other people could have noticed. Or the opposite - being so fidgety or restless that you have been moving around a lot more than usual: several days 9. Thoughts that you would be better off or of hurting yourself in some way: not at all Total score: 10 Depression Screening Interpretation: Positive Depression Screening Done: Yes 73797 - PHQ-9 Billing: Yes Source: Developed by Drs. Riaz Pickens, Geraldine So, Demetris Hoffmann and colleagues, with an educational marsha from [employer]. Thrive Questionnaire Date Thrive assessed: 07/17/23 I am a: Patient What is your living situation today?: I have a steady place to live Within the past 12 months, did the food you bought not last and you didn't have the money to get more?: Never true Within the past 12 months, did you worry whether your food would run out before you got money to buy more?: Never true Do you have trouble paying for medicines?: No Do you have trouble getting transportation to medical appointments?: No Do you have trouble paying your heating and electricity bill?: No Do you have trouble taking care of your child, family member or friend?: No Do you have trouble with day-to-day activities such as bathing, preparing meals, shopping, managing finances, etc.?: No Are you currently unemployed and looking for a job?: No Are you interested in more education?: No Please select the resources that you would like help with: None Currently or been in a relationship where the following occur: no concerns reported THRIVE Score: 0 AUDIT C Alcohol Use Questionnaire (AUDIT-C) 1. How often do you have a drink containing alcohol?: Monthly or less 2. How many drinks containing alcohol do you have on a typical day when you are drinking?: 1 or 2 3. How often do you have six or more drinks on one occasion?: Never Total Score: 1 Score Reviewed/Action Taken: Yes DARRELL-7 AMB Questionnaire DARRELL-7 Date DARRELL - 7 assessed: 07/17/23 Feeling nervous, anxious, or on edge: 3 = Nearly every day Not being able to stop or control worryin = Nearly every day Worrying too much about different things: 3 = Nearly every day Trouble relaxin = More than half the days Being so restless that it is hard to sit still: 1 = Several days Becoming easily annoyed or irritable: 3 = Nearly every day Feeling afraid as if something awful might happen: 1 = Several days Total DARRELL-7 score (0-4 normal; 5-9 mild; 10-14 moderate; 15-21 severe): 16 Source: Developed by Drs. Riaz Pickens, Geraldine So, Demetris Hoffmann and colleagues, with an educational marsha from [employer] DARRELL-7 Assessment Billing DARRELL-7 Assessment Tool: DARRELL-7 Assessment 12566 Review of Systems Const Reports as per HPI Physical exam (Primary Care) Vital Signs: Last Vital Signs Pulse 80 07/17/23 13:44 BP 130/82 07/17/23 13:44 Pulse Ox 98 07/17/23 13:44 Oxygen Delivery Method Room Air 07/17/23 13:44 BMI result Body Mass Index 43.9 Tobacco/Smoking Status: Tobacco use Status Tobacco use date assessed 07/17/23 07/17/23 13:50 Patient Tobacco Use Status Never used Tobacco 07/17/23 13:40 e-Cigarette/Vaping Use Never Used 07/17/23 13:40 PHQ-9: PHQ-9 Score PHQ-9: Total score 10 07/17/23 16:18 Depression Screening Interpretation: Positive Thrive Assessment: Date of Thrive Assessment Date Thrive assessed 07/17/23 07/17/23 13:50 Currently or been in a relationship where the following occur: no concerns reported Const General: cooperative Nutritional Appearance: obese morbidly obese Orientation/consciousness: patient oriented x3 Chest Other: tenderness with palpation of upper chest Resp Effort & Inspection: normal respiratory effort Auscultation: clear to auscultation bilaterally Cardio Rate: regular rate Rhythm: regular rhythm Heart sounds: S1 normal heart sound present, S2 normal heart sound present and Murmur heart sound present systolic Neuro General: patient oriented x3 Psych Appearance: grossly normal Mental Status: mental status grossly normal Speech and movement: Normal speech and movement present Affect: normal affect Attitude: cooperative Thought process: Normal thought process present Thought content: Normal thought content present Insight: Good insight present (Psych) Judgement: Good judgement present (Psych) Assessment and Plan Assessment & Plan (1) Chest pain: Code(s): R07.9 - Chest pain, unspecified Plan: EKG done in office, stress test and PFT testing ordered, pt will contact me via portal with how she is doing. NSAIDS can be used, any worsening symptoms, ER. Plan The patient agreed to the use of a medical billing representative for this encounter. Scribed for PIPO Snyder by Essie Asher medical billing representative, on 07/17/2023 at 14:05 EST. Orders: Orders AMB EKG-In Office Today R07.9 - Chest pain, unspecified CA stress test Today R07.9 - Chest pain, unspecified Pulmonary Test/Procedure Today R07.9 - Chest pain, unspecified Medications: New buspirone 5 mg PO BID 30 days 60 tabs 2RF Coding Level of Care Code Est Pt Level 3 (71566) Diagnoses Chest pain R07.9 Additional Codes DARRELL-7 Assessment Billing - DARRELL-7 Assessment Tool: DARRELL-7 Assessment 30644 ([id number])
[2023-07-17 13:44] VITALS: BP 130/82; PULSE 80; O2SAT 98; BMI 43.9
== END 2023-07-17 15:05 | disposition home or self-care (01) ==
PROVIDERS: PCP Nurse Practitioner Family; Visit Provider Nurse Practitioner Family
DX: R07.9 Chest pain, unspecified (principal)
CPT/HCPCS: 93000; 99213

== ENCOUNTER → 2023-07-25 10:13 | Outpatient (REF) | payer OTHER, SELFPAY ==
--- NOTE | 2023-07-25 10:17 | CA_ITS ---
Acquisition Time: 2023-07-25 10:33:19 Total Exercise Time: 00:07:10 Test Indications: cp Medications: Protocol: EVERARDO Max HR: 162 BPM 87% of Pred: 186 BPM Max BP: 162/068 mmHG Max Work Load: 8.8 METS Exercise stress test exercise 7 min 10 sec of Everardo protocol achieving 87% MPHR, with mild to moderate SOB, 3/10 chest discomfort at baseline, with 0/10 chest discomfort at peak, without arrhythmias, with normotensive response to exericse, without EKG changes. Breathing returned to normal with rest.Test reviewed with Dr. Gomez Referred By: Ry Lemos Overread By: Bebe Brunson
== END ==
LOC: HO.CARD 10:13
PROVIDERS: PCP Nurse Practitioner Family; Visit Provider Nurse Practitioner Family
DX: R07.9 Chest pain, unspecified (principal)
CPT/HCPCS: 93017

== ENCOUNTER → 2023-07-25 10:17 | Outpatient (BNV) | payer OTHER, SELFPAY | PROVIDERS: PCP Nurse Practitioner Family; Visit Provider Nurse Practitioner | DX: R07.9 Chest pain, unspecified (principal) | CPT/HCPCS: 93016; 93018 ==

== ENCOUNTER 2023-11-11 09:12 | Outpatient (AMB) | payer OTHER, SELFPAY ==
--- NOTE | 2023-11-11 09:13 | A.OFFPC_ITS ---
Vital Signs 11/11/23 09:18 Height 5 ft 2 in BP 124/80 Blood Pressure Location Lt brachial Position Sitting Pulse 70 Pulse Source Pulse Oximeter Pulse Oximetry (%) 98 Oxygen Delivery Method Room Air Intake Visit Reasons: Annual PE Intake Note: Patient here for physical exam. Pap: 2022 due next year Allergies No Known Allergies [No Known Allergies*] Allergy (Verified 11/11/23 09:59) Medication List - Last Reconciled 11/11/23 by PIPO Dia buspirone 5 mg PO BID 30 days clonidine HCl 0.1 mg PO BEDTIME gabapentin 100 mg PO BEDTIME Tobacco use date assessed: 07/17/23 Dental Screening Dental Screen Date: 07/17/23 HPI Annual PE HPI Details pt is here for a PE. Pt had Gastric Sleeve Procedure in August. Pt reports doing good. She has a overhead irrigator. [facility] Medical History Left shoulder pain Obesity Chronic fatigue Eczema GERD (gastroesophageal reflux disease) PCOS (polycystic ovarian syndrome) DDD (degenerative disc disease), cervical Depression with anxiety Surgical History History of sleeve gastrectomy History of gynecologic surgery History of section History of wisdom tooth extraction Family History Father HTN (hypertension) Mother HTN (hypertension) Brother No problems noted. Brother No problems noted. Brother No problems noted. Maternal Aunt Mental health disorder Maternal Uncle Mental health disorder Social History Housing: Apartment Alcohol intake: never Patient Tobacco Use Status: Never used Tobacco e-Cigarette/Vaping Use: Never Used Second Hand Smoke Exposure: No service: No Current occupational status: employed Current occupation: [employer] Current occupational exposures/hazards: Yes Cognitive needs: No Hearing needs: No Vision needs: No Questionnaire PHQ-9 Over the last 2 weeks, how often have you been bothered by any of the following problems? 1. Little interest or pleasure in doing things: not at all 2. Feeling down, depressed, or hopeless: not at all 3. Trouble falling or staying asleep, or sleeping too much: several days 4. Feeling tired or having little energy: several days 5. Poor appetite or overeating: not at all 6. Feeling bad about yourself - or that you are a failure or have let yourself or your family down: not at all 7. Trouble concentrating on things, such as reading the newspaper or watching television: several days 8. Moving or speaking so slowly that other people could have noticed. Or the opposite - being so fidgety or restless that you have been moving around a lot more than usual: not at all 9. Thoughts that you would be better off or of hurting yourself in some way: not at all Total score: 3 Depression Screening Interpretation: Negative (has a therapist and a psychiatrist) Depression Screening Done: Yes 39518 - PHQ-9 Billing: Yes Source: Developed by Drs. Riaz Pickens, Geraldine So, Demetris Hoffmann and colleagues, with an educational marsha from [employer] Thrive Questionnaire Date Thrive assessed: 07/17/23 I am a: Patient What is your living situation today?: I have a steady place to live Within the past 12 months, did the food you bought not last and you didn't have the money to get more?: Never true Within the past 12 months, did you worry whether your food would run out before you got money to buy more?: Never true Do you have trouble paying for medicines?: No Do you have trouble getting transportation to medical appointments?: No Do you have trouble paying your heating and electricity bill?: No Do you have trouble taking care of your child, family member or friend?: No Do you have trouble with day-to-day activities such as bathing, preparing meals, shopping, managing finances, etc.?: No Are you currently unemployed and looking for a job?: No Are you interested in more education?: No Please select the resources that you would like help with: Housing/Fci Currently or been in a relationship where the following occur: No concerns reported THRIVE Score: 0 AUDIT C Alcohol Use Questionnaire (AUDIT-C) 1. How often do you have a drink containing alcohol?: Monthly or less 2. How many drinks containing alcohol do you have on a typical day when you are drinking?: 1 or 2 3. How often do you have six or more drinks on one occasion?: Less than monthly Total Score: 2 Score Reviewed/Action Taken: Yes DARRELL-7 AMB Questionnaire DARRELL-7 Date DARRELL - 7 assessed: 07/17/23 Feeling nervous, anxious, or on edge: 1 = Several days Not being able to stop or control worryin = Several days Worrying too much about different things: 1 = Several days Trouble relaxin = Several days Being so restless that it is hard to sit still: 1 = Several days Becoming easily annoyed or irritable: 2 = More than half the days Feeling afraid as if something awful might happen: 1 = Several days Total DARRELL-7 score (0-4 normal; 5-9 mild; 10-14 moderate; 15-21 severe): 8 Source: Developed by Drs. Riaz Pickens, Geraldien So, Demetris Hoffmann and colleagues, with an educational marsha from [employer] DARRELL-7 Assessment Billing DARRELL-7 Assessment Tool: DARRELL-7 Assessment 42518 Review of Systems Const Denies chills and Denies fever(s) Eyes Denies blurry vision ENT Denies vertigo, Denies dizziness and Denies sore throat Card Denies chest pain at rest, Denies chest pain with activity, Denies diaphoresis, Denies dyspnea and Denies dyspnea on exertion Resp Denies cough, Denies dyspnea, Denies dyspnea on exertion and Denies wheezing GI Denies abdominal pain, Denies melena, Denies hematochezia, Denies constipation, Denies diarrhea and Denies loose stools Denies hematuria Musc Denies numbness and Denies tingling Skin/Breast Denies lesions Neuro Denies vertigo, Denies dizziness, Denies numbness and Denies tingling Psych Denies anxiety, Denies depression, Denies homicidal ideation, Denies suicidal ideation and Denies other (substance abuse) Aller/Immun Denies wheezing Physical exam (Primary Care) Vital Signs: Last Vital Signs Pulse 70 11/11/23 09:18 BP 124/80 11/11/23 09:18 Pulse Ox 98 11/11/23 09:18 Oxygen Delivery Method Room Air 11/11/23 09:18 Tobacco/Smoking Status: Tobacco use Status Tobacco use date assessed 07/17/23 11/11/23 09:14 Patient Tobacco Use Status Never used Tobacco 11/11/23 09:14 e-Cigarette/Vaping Use Never Used 11/11/23 09:14 PHQ-9: PHQ-9 Score PHQ-9: Total score 3 11/11/23 09:14 Depression Screening Interpretation: Negative (has a therapist and a psychiatrist) Thrive Assessment: Date of Thrive Assessment Date Thrive assessed 07/17/23 11/11/23 09:14 Currently or been in a relationship where the following occur: No concerns reported Const General: cooperative Nutritional Appearance: well nourished and obese Orientation/consciousness: patient oriented x3 HENMT Head: Yes normal to inspection, Yes normocephalic and Yes atraumatic Ears: TM normal on the right and TM normal on the left Eyes General: appearance normal, both eyes and all related structures Alignment and Position: alignment normal and position normal Neck Neck: Yes normal visual inspection and Yes no lymphadenopathy Resp Effort & Inspection: normal respiratory effort Auscultation: clear to auscultation bilaterally Cardio Rate: regular rate Rhythm: regular rhythm Heart sounds: S1 normal heart sound present, S2 normal heart sound present and Murmur heart sound present systolic GI Palpation (GI): Soft to palpation and nontender Auscultation: normal bowel sounds Skin Other: 5 abd lap sites, healed Rashes: no rashes Neuro General: patient oriented x3, moves all extremities, no focal motor deficits and deep tendon reflexes 2+ bilaterally Romberg Test: Negative Extrem Right lower extremity: no edema Left lower extremity: no edema Psych Affect: normal affect Attitude: cooperative Thought process: Normal thought process present Assessment and Plan Assessment & Plan (1) Physical exam: Code(s): Z00.00 - Encounter for general adult medical examination without abnormal findings Plan labs ordered Coding Level of Care Code Est Pt Prev Care 18-39y(30513) Diagnoses Physical exam Z00.00 Additional Codes DARRELL-7 Assessment Billing - DARRELL-7 Assessment Tool: DARRELL-7 Assessment 14333 ([id number])
[2023-11-11 09:18] VITALS: BP 124/80; PULSE 70; O2SAT 98
== END 2023-11-11 09:56 | disposition home or self-care (01) ==
PROVIDERS: PCP Nurse Practitioner Family; Visit Provider Nurse Practitioner Family
DX: Z00.00 Encounter for general adult medical examination without abnormal findings (principal)
CPT/HCPCS: 99395

== ENCOUNTER → 2024-09-15 08:51 | Outpatient (BNVA) | payer OTHER, SELFPAY | PROVIDERS: PCP Nurse Practitioner Family; Visit Provider Nurse Practitioner Family ==

== ENCOUNTER 2024-10-06 09:04 | Outpatient (REF) | payer OTHER, SELFPAY | END 2024-10-06 09:05 | disposition home or self-care (01) | LOC: HO.LAB 09:04 | PROVIDERS: PCP Nurse Practitioner Family; Visit Provider Physician Assistant | DX: N39.0 Urinary tract infection, site not specified (principal); Z13.9 Encounter for screening, unspecified | CPT/HCPCS: 81003; 87086; 99212 ==

== ENCOUNTER 2024-10-06 09:04 | Outpatient (AMB) | payer OTHER, SELFPAY ==
--- NOTE | 2024-10-06 09:22 | AM.OFFWIN_ITS ---
Intake Vital Signs 10/06/24 09:32 Height 5 ft 2 in Weight 190 lb BMI 34.7 BP 112/70 Blood Pressure Location Lt brachial Position Sitting Pulse 58 Pulse Source Pulse Oximeter Temp 97.6 F Temp Source Temporal Artery Scan Pulse Oximetry (%) 100 Oxygen Delivery Method Room Air Intake Visit Reasons: EP Pain in bladder Intake Note: Pt presents to the office today for c/o pain in her bladder, urinary frequency x1 week. Patient Tobacco Use Status: Never used Tobacco Allergies No Known Allergies [No Known Allergies*] Allergy (Verified 10/06/24 09:34) HPI HPI Comments History of Present Illness Details History of Present Illness - The patient is a 33-year-old female pr esenting with bladder pain and suspected urinary tract infection. - She reports bladder pain for over a we ek, with radiation towards the kidneys, and denies a history of kidney stones or hematuria. - Lower back pain and sensations of warm th with facial flushing have been noted, but no fever. - A burning sensation post-urination sug gests a urinary tract infection, with inconsistent increased urinary frequency. - No abnormal vaginal discharge or risk of sexually transmitted infections reported. - The patient takes pantoprazole daily a nd has no known drug allergies. Physical Exam General: Cooperative, healthy appearing, comfortable, no acute distress and well developed Orientation: Patient oriented x3 Limitations: No limitations Head: Normal to inspection Ears: Hearing grossly normal bilaterally Nose: Normal External nose present Face and sinus: Normal facial exam Eyes: Appearance normal, both eyes and all related structures Neck: Normal visual inspection and Yes full ROM Respiratory: Normal respiratory effort and able to speak in complete sentences. Skin: No rashes or lesions noted Neuro: Patient oriented x3 Extremities: Normal to inspection [facility] Medical History induced hypertension Left shoulder pain Obesity Chronic fatigue Eczema GERD (gastroesophageal reflux disease) PCOS (polycystic ovarian syndrome) DDD (degenerative disc disease), cervical Depression with anxiety Surgical History History of sleeve gastrectomy History of gynecologic surgery History of section History of wisdom tooth extraction Family History Father HTN (hypertension) Mother HTN (hypertension) Brother No problems noted. Brother No problems noted. Brother No problems noted. Maternal Aunt Mental health disorder Maternal Uncle Mental health disorder Social History Housing: Apartment Alcohol intake: never Patient Tobacco Use Status: Never used Tobacco e-Cigarette/Vaping Use: Never Used Second Hand Smoke Exposure: No service: No Current occupational status: employed Current occupation: [employer] Current occupational exposures/hazards: Yes Cognitive needs: No Hearing needs: No Vision needs: No Review of Systems Const All systems reviewed & are unremarkable except as noted in HPI and below Physical Exam Vital Signs: Last Vital Signs Temp 97.6 F 10/06/24 09:32 Pulse 58 10/06/24 09:32 BP 112/70 10/06/24 09:32 Pulse Ox 100 10/06/24 09:32 Oxygen Delivery Method Room Air 10/06/24 09:32 BMI result Body Mass Index 34.7 Results AMB Urinalysis, Automated UA Leukoctes 0 Arpan/uL Last Edit by Nabila Weeks CMA on 10/06/24 09:39 UA Nitrite Negative Last Edit by Nabila Weeks CMA on 10/06/24 09:39 UA Urobilinogen 0.2 mg/dL Last Edit by Nabila Weeks CMA on 10/06/24 09:39 UA Protein 0 mg/dL Last Edit by Nabila Weeks CMA on 10/06/24 09:39 UA pH 6.5 Last Edit by Nabila Weeks CMA on 10/06/24 09:39 UA Blood 0 Rohan/uL Last Edit by Nabila Weeks CMA on 10/06/24 09:39 UA Specific [place] 1.010 Last Edit by Nabila Weeks CMA on 10/06/24 09:39 UA Ketone Negative Last Edit by Nabila Weeks CMA on 10/06/24 09:39 UA Bilirubin 0 mg/dL Last Edit by Nabila Weeks CMA on 10/06/24 09:39 UA Glucose 0 mg/dL Last Edit by Nabila Weeks CMA on 10/06/24 09:39 Results Reviewed Results Reviewed: Laboratory Last Values Urine pH (Auto) 6.5 10/06/24 09:36 Specific [place] (Auto) 1.010 10/06/24 09:36 Urine Protein (Auto) 0 mg/dL 10/06/24 09:36 Glucose (UA)(Auto) 0 mg/dL 10/06/24 09:36 Urine Ketones (Auto) Negative 10/06/24 09:36 Urine Blood (Auto) 0 Rohan/uL 10/06/24 09:36 Urine Nitrite (Auto) Negative 10/06/24 09:36 Urine Bilirubin (Auto) 0 mg/dL 10/06/24 09:36 Urine Urobilinogen (Auto) 0.2 mg/dL 10/06/24 09:36 Leukocyte Esterase (Auto) 0 Arpan/uL 10/06/24 09:36 Assessment & Plan Assessment & Plan (1) Symptomatic urinary tract infection: Code(s): N39.0 - Urinary tract infection, site not specified Plan: - UA neg for infection or blood. - Start empirical antibiotic therapy for suspected urinary tract infection. - Send urine for culture to confirm infection and guide treatment. - Monitor symptoms and report any worsening pain, hematuria, or fever. - Skip pantoprazole for a few days due to potential interaction with antibiotics. - Use TUMS as an alternative for gastric symptoms during antibiotic treatment. Patient was informed and verbally consented to the use of an ambient scribe for clinic note documentation during this visit. Orders: Orders AMB Urinalysis Automated Today Z13.9 - Encounter for screening, unspecified Urine Culture Today N39.0 - Urinary tract infection, site not specified Medications: New cefuroxime axetil 500 mg PO Q12H 10 tabs 0RF Coding Level of Care Code Est Pt Level 3 (16512) Diagnoses Symptomatic urinary tract infection N39.0
[2024-10-06 09:32] VITALS: BP 112/70; PULSE 58; TEMP 36.4; O2SAT 100; BMI 34.7
--- OUTSIDE RECORDS SUMMARY | 2024-10-06 09:35 | XMS_ITS | Clinical Summary ---
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 4 Active busPIRone (BUSPAR) 10 mg tablet 5 Active busPIRone (BUSPAR) 5 mg tablet Take 1 tablet (5 mg total) by mouth 2 (two) times a day. 5 Active lamoTRIgine (LaMICtal) 25 mg tablet Take 1 tablet (25 mg total) by mouth 1 (one) time each day. 5 Active pantoprazole (PROTONIX) 40 mg EC tablet TAKE 1 TABLET BY MOUTH EVERY DAY 90 tablet 1 5 Active D3-2000 50 mcg (2,000 unit) capsule TAKE 1 CAPSULE BY MOUTH EVERY DAY 90 capsule 5 Active cholecalcifero l (VITAMIN D-3) 50 mcg (2,000 unit) capsule TAKE 1 CAPSULE BY MOUTH EVERY DAY 90 capsule 5 025 Discontinued Active Problems Problem Noted Date Diagnosed Date PCOS (polycystic ovarian syndrome) 08/11/2024 History of bariatric surgery 08/11/2024 Overview (08/11/2024): Gastric sleeve 08/2023 Resolved Problems Problem Noted Date Diagnosed Date Resolved Date PIH ( induced hypertension) 12/11/2016 08/11/2024 Overview (03/03/2024): PIH labs and TP/CR ratio Group B streptococcal bacteriuria 06/03/2016 08/11/2024 Overview (03/03/2024): Treat in labor Irregular menstrual cycle 04/27/2014 Encounters Date Type Department Care Team Description 09/07/2024 3:45 PM EDT Office Visit Bariatric Surgery - [facility] [address] [facility] [address] [place] [address] Holly Weinberg MD S/P bariatric surgery (Primary Dx); Obesity, Class I, BMI 30-34.9 08/11/2024 10:30 AM EDT Office Visit Obstetrics & Gynecology - [facility] [address] [place] [address] Anabela Griffith CNM Encounter for well woman exam with routine gynecological exam (Primary Dx); Screening breast examination; Screening for cervical cancer; Dyspareunia in female; History of bariatric surgery; PCOS (polycystic ovarian syndrome) from Last 3 Months Immunizations Name Administration Dates Next Due Influenza Quadravalent, MDCK , 0.5ml, preservative free (Flucelvax) 6mo and older 03/08/2020 Influenza Quadrivalent, 0.5m l, preservative free (Fluarix; FluLaval; Fluzone) ages 6mo and older (Afluria) 3yo and older 02/20/2023,02/20/2022,01/18/2021 Influenza Quadrivalent, with preservative (Fluzone; Afluria) 6mo and older 02/17/2019 Influenza trivalent, 0.5mL, preservative free (Fluarix; FluLaval; Fluzone) ages 6mo and older (Afluria) 3 years and older 03/17/2024 Tdap Tetanus diptheria acell ular pertussis (Boostrix; Adacel) 7yo and older 01/29/2019,11/01/2016 Surgical History Surgery Date Site/Laterality Comments SECTION PROCEDURE: HISTORICAL DELIVERY OTHER SURGICAL HISTORY PROCEDURE: HISTORY OTHER; COMMENT: uterine poypectomy SECTION, LOW TRANSVERSE 12/18/2016 BARIATRIC SURGERY 09/25/2023 gasric sleeve/ [facility] Medical History Date Comments Anxiety DX:Anxiety PCOS (polycystic ovarian syndrome) Polycystic ovary syndrome 15yrs old Bipolar 1 disorder ([facility] V24, [facility] V28) psychiatrist- ama Swan, [facility] PIH ( induced hypertension) 12/11/2016 PIH labs and TP/CR ratio Irregular menstrual cycle 04/27/2014 Family History Medical History Relation Name Comments No Known Problems Brother 1 No Known Problems Brother 2 No Known Problems Brother 3 Hypertension Father Julio Anaya Hypertension Mother Latisha Anaya Diabetes Paternal Grandmother Donna Pulido Relation Name Status Comments Brother 1 Alive Brother 2 Alive Brother 3 Alive Father Julio Anaya Alive Maternal Grandfather Maternal Grandmother Mother Latisha Anaya Alive Paternal Grandfather Paternal Grandmother Donna Pulido Alive Social History Tobacco Use Types Packs/Day Years Used Date Smoking Tobacco: Never Smokeless Tobacco: Never Tobacco Cessation:Counseling Given: Not Answered Alcohol Use Standard Drinks/Week Comments Yes 0 (1 standard drink = 0.6 oz pur e alcohol) Housing Instability Answer Date Recorde d Are you worried that in the next 2 months you may not have stable housing? No 04/24/2024 Food Access & Nutrition Answer Date Rec orded Do you have access to a vari ety of food including fruits and vegetables? Yes 04/24/2024 Health Literacy Answer Date Recorded How often do you need to hav e someone help you when you read instructions, pamphlets, or other written material from your doctor or pharmacy? Never 04/24/2024 Caregiver: How often do you need to have someone help you when you read instructions, pamphlets, or other written material from your doctor or pharmacy? Not on file 04/24/2024 Financial Risk Answer Date Recorded How hard is it for you to pa y for the very basics like food, housing, medical care, and air conditioning / heating? Not very hard 04/24/2024 Transportation Answer Date Recorded Has the lack of transportati on kept you from meetings, work, or from getting things needed for daily living? No Has the lack of transportati on kept you from medical appointments or from getting medications? No 04/24/2024 Social Isolation Answer Date Recorded How often do you feel lonely or isolated from th ose around you? Never 04/24/2024 Food Risk Answer Date Recorded Within the past 12 months we worried whether our food would run out before we got money to buy more. Never true 04/24/2024 Within the past 12 months th e food we bought just didn't last and we didn't have money to get more. Never true 04/24/2024 Dependent Care Answer Date Recorded Do you need help finding or paying for care for your loved ones. For example, child care giver or elderly care for an older adult? No 04/24/2024 Education Answer Date Recorded Do you think completing more education or training, like finishing a GED, going to college, or learning a trade, would be helpful for you? N/A 04/24/2024 Employment and Income Answer Date Recor ded During the last four weeks, have you been actively looking for work? No 04/24/2024 Living Situation Answer Date Recorded What is your living situation? 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 GBS+ Last Filed Vital Signs Vital Sign Reading Time Taken Comments Blood Pressure 144/87 09/07/2024 3:33 PM EDT Pulse 66 09/07/2024 3:33 PM EDT Temperature 36.8 ??C (98.2 ??F) 09/07/2024 3:33 PM ED T Respiratory Rate 16 04/24/2024 2:12 PM EST Oxygen Saturation 98% 04/24/2024 2:12 PM EST Inhaled Oxygen Concentration - - Weight 86.2 kg (190 lb) 09/07/2024 3:33 PM EDT Height 157.5 cm (5' 2 ) 09/07/2024 3:33 PM EDT Body Mass Index 34.75 09/07/2024 3:33 PM EDT Plan of Treatment Health Maintenance Due Date Last Done Comments Hepatitis B Vaccines (1 of 3 - 19+ 3-dose series) 12/04/2007 Cholesterol Screening (Lipid Panel) 03/31/2022 HIV Screening 03/31/2022 Hepatitis C Screening 03/31/2022 COVID-19 Vaccine ( season) 2023 10/02/2020, 09/11/2020 Social Influencers of Health Screening 04/24/2025 04/24/2024 Depression Screening 08/11/2025 08/11/2024 DTaP,Tdap,and Td Vaccines (3 - Td or Tdap) 01/29/2029 01/29/2019, 11/01/2016 Cervical Cancer Screening: HPV 08/11/2029 08/11/2024 Influenza Vaccine Completed 03/17/2024, , 02/20/2022, Additional history exists HIB Vaccines Aged Out No longer eligi ble based on patient's age to complete this topic HPV Vaccines Aged Out No longer eligi ble based on patient's age to complete this topic Hepatitis A Vaccines Aged Out No long er eligible based on patient's age to complete this topic IPV Vaccines Aged Out No longer eligi ble based on patient's age to complete this topic MMR Vaccines Aged Out No longer eligi ble based on patient's age to complete this topic Meningococcal ACWY Vaccine Aged Out N o longer eligible based on patient's age to complete this topic Meningococcal B Vaccine Aged Out No l onger eligible based on patient's age to complete this topic Pneumococcal Vaccine: Pediatrics (0 to 5 Years) and At-Risk Patients (6 to 64 Years) Aged Out No longer eligible based on patient's age to complete this topic RSV Immunization Patients Under 20 months Aged Out No longer eligible based on patient's age to complete this topic Varicella Vaccines Aged Out No longer eligible based on patient's age to complete this topic Procedures Procedure Name Priority Date/Time Associated Diagnosis Comments PAP SMEAR Routine 08/11/2024 11:08 AM EDT Encounter for well woman exam with routine gynecological exam Screening for cervical cancer HPV WITH REFLEX GENOTYPE Routine 08/11/2024 11:08 AM EDT Encounter for well woman exam with routine gynecological exam Screening for cervical cancer TRICHOMONAS VAGINALIS ANTIGEN Routine 08/11/2024 11:08 AM EDT Encounter for well woman exam with routine gynecological exam Dyspareunia in female CHLAMYDIA TRACHOMATIS AND NEISSERIA GONORRHOEAE PCR Routine 08/11/2024 11:08 AM EDT Encounter for well woman exam with routine gynecological exam Dyspareunia in female WET PREP, GENITAL Routine 08/11/2024 11: 08 AM EDT Encounter for well woman exam with routine gynecological exam Dyspareunia in female from Last 3 Months Results * HPV with reflex genotype (08/11/2024 11:08 AM EDT) HPV Negative Negative LAB MICROBIOLOGY METHOD 08/12/2024 1:42 PM EDT [facility] Brushing/Spatula Cervix uteri structure / Unknown 08/11/2024 11:08 AM EDT 08/12/2024 5:43 AM EDT Anabela ALATORRE LAB MOLECULAR DIAGNOSTICS ORD ERABLES Final Result [facility] [address] [place] [address], * Trichomonas vaginalis antigen (08/11/2024 11:08 AM EDT) Trichomonas vaginalis Negative Negative 08/11/2024 2:57 PM EDT [facility] Swab Vaginal structure / Unknown Non-blood Collection / Unknown 08/11/2024 11:08 AM EDT 08/11/2024 12:34 PM EDT Anabela Griffith [facility] MICROBIOLOGY - GENERAL OR DERABLES Final Result Performing Organization Address City/[facility]/ZIP Co de Phone Number [facility] [address] [place] [address], * Chlamydia trachomatis and Neisseria gonorrhoeae molecular study (08/11/2024 11:08 AM EDT) Neisseria gonorrhoeae PCR Negative Negative LAB MOLECULAR DIAGNOSTICS METHOD 08/11/2024 4:15 PM EDT [facility] Chlamydia trachomatis PCR Negative Negative LAB MOLECULAR DIAGNOSTICS METHOD 08/11/2024 4:15 PM EDT [facility] Swab Cervix uteri structure / Unknown Non-blood Collection / Unknown 08/11/2024 11:08 AM EDT 08/11/2024 12:34 PM EDT Anabela Griffith [facility] MICROBIOLOGY - GENERAL OR DERABLES Final Result Performing Organization Address [facility] Co de Phone Number [facility] [address] [place] [address], * Wet prep, genital (08/11/2024 11:08 AM EDT) Clue Cells, Wet Prep Negative Negative 08/11/2024 2:55 PM EDT [facility] Yeast, Wet Prep Negative Negative 08/11/2024 2:55 PM EDT [facility] Trichomonas, Wet Prep Indeterminate Negative 08/11/2024 2:55 PM EDT [facility] Comment:Refer to Trichomonas antigen. Swab Vaginal structure / Unknown Non-blood Collection / Unknown 08/11/2024 11:08 AM EDT 08/11/2024 12:34 PM EDT Anabela Griffith CNM LAB MICROBIOLOGY - GENERAL OR DERABLES Final Result [facility] [address] [place] [address], * Pap smear (08/11/2024 11:08 AM EDT) Interpretation Negative for intraepithelial lesion or malignancy 08/17/2024 6:00 PM EDT [facility] Clinical Information 2022 ASCUS/ HSIL Colpo- Chronic cervicitis 08/17/2024 6:00 PM EDT [facility] General Categorization Negative 08/17/2024 6:00 PM EDT [facility] LMP 07/26/2024 08/17/2024 6:00 PM EDT [facility] Specimen Adequacy Satisfactory for evaluation, endocervical/solomon sformation zone component present 08/17/2024 6:00 PM EDT [facility] Pap Methodology Liquid Based Pap Test 08/17/2024 6:00 PM EDT [facility] Disclaimer The Pap test is a screening test which carries an inherent false negative rate. These test results should be correlated with the patient's clinical findings and history. This Pap test was processed using an automated screening system. Technical cytopathology services provided by [facility], at [address] [place] [address] (CLIA # [id number]/Johnson Baltazar MD, Visual Journalist.) 08/17/2024 6:00 PM EDT [facility] Console Pap Interpretation Reported 08/17/2024 6:00 PM [facility] Brushing/Spatula Cervix uteri structure / Unknown 08/11/2024 11:08 AM EDT 08/12/2024 5:43 AM EDT Comment:2022 ASCUS/ HSILColp o- Chronic cervicitis us Anabela Griffith CN LAB CYTOLOGY ORDERABLES Final Result [facility] [address] [place] [address], from Last 3 Months Insurance [facility] Cardiovascular [employer] Care Teams Custom Home Installer Relationship Specialty Start Date End Date Ry Lemos NP [address], [place] PCP - General 02/26/23
== END 2024-10-06 10:07 | disposition home or self-care (01) ==
PROVIDERS: PCP Nurse Practitioner Family; Visit Provider Physician Assistant
DX: Z13.9 Encounter for screening, unspecified (principal); N39.0 Urinary tract infection, site not specified

== ENCOUNTER 2024-12-02 09:15 | Outpatient (REF) | payer OTHER, SELFPAY ==
[2024-12-02 13:20] LABS: MANUAL DIFF FLAG NO
[2024-12-02 13:33] LABS: Hematocrit 35.3 % (37.0-47.0); Hemoglobin 11.9 g/dl (12.0-16.0); Imm Gran Abs Auto 0.02 X10*3/uL (0.00-0.03); Imm Gran Pct Auto 0.2 % (0.0-0.4); Lymphocytes Absolute Auto 2.2 X10*3/uL (1.2-4.9); Mean Corpuscular HGB Conc 33.7 g/dl (31.0-35.0); Mean Corpuscular Hemoglobin 30.2 pg (27.0-33.0); Mean Corpuscular Volume 89.6 fL (80.0-98.0); NRBC Abs Auto 0.000 X10*3/uL (0.0-0.012); NRBC Pct Auto 0.0 /100WBC (0.0-0.2); Platelet Count 196 X10*3/uL (160-400); Red Blood Count 3.94 X10*6/uL (4.20-5.50); White Blood Count 8.3 X10*3/uL (4.8-10.8)
[2024-12-02 14:08] LABS: Alanine Aminotransferase 16 U/L (0-31); Albumin Level 4.8 g/dL (3.5-5.0); Alkaline Phosphatase 52 U/L (39-117); Anion Gap 13 (12-20); Aspartate Amino Transferase 25 U/L (5-31); Blood Urea Nitrogen 9 mg/dL (9-16); Calcium 9.1 mg/dL (8.4-10.2); Carbon Dioxide 23 mmol/L (22-29); Chloride 107 mmol/L (96-108); Cholesterol 138 mg/dL (<200); Estimated Glomerular Filt Rate > 60; HDL Cholesterol 61 mg/dL (>40); Potassium 4.1 mmol/L (3.3-5.1); Sodium 139 mmol/L (135-145); Total Protein 7.9 g/dL (6.5-8.0); Triglycerides 69 mg/dL (<150)
== END 2024-12-02 09:16 | disposition home or self-care (01) ==
LOC: HO.HMGCLDS 09:15
PROVIDERS: PCP Nurse Practitioner Family; Visit Provider Nurse Practitioner Family
DX: Z00.00 Encounter for general adult medical examination without abnormal findings (principal); E55.9 Vitamin D deficiency, unspecified; E66.9 Obesity, unspecified; Z68.36 Body mass index [BMI] 36.0-36.9, adult; Z71.3 Dietary counseling and surveillance
CPT/HCPCS: 36415; 80053; 80061; 82306; 84443; 85025; 96127; 99395

== ENCOUNTER 2024-12-02 09:15 | Outpatient (AMB) | payer OTHER, SELFPAY ==
[2024-12-02 09:26] VITALS: BP 122/84; PULSE 78; RESP 16; TEMP 36.8; BMI 36.2
--- NOTE | 2024-12-02 09:26 | MHC.PC.OV ---
Vital Signs 12/02/24 09:26 Height 5 ft 2 in Weight 198 lb BMI 36.2 BP 122/84 Blood Pressure Location Lt brachial Position Sitting Respiration 16 Pulse 78 Pulse Source Palpation Temp 98.3 F Temp Source Oral Oxygen Delivery Method Room Air Intake Visit Reasons: PE Secret Code Expert Required: No Accompanied by: Self / Same As Patient Allergies No Known Allergies (No Known Allergies*) Allergy (Verified 12/02/24 09:27) Medication List - Last Reconciled 12/02/24 by JESSICA Dia buspirone 5 mg PO BID 30 days cholecalciferol (vitamin D3) 50 mcg PO DAILY lamotrigine 50 mg PO DAILY pantoprazole 40 mg PO DAILY Tobacco use date assessed: 12/02/24 Dental Screening Dental Screen Date: 12/02/24 Did you have a dental visit in the last 12 months?: Yes Did you have a dental problem in the last 6 months where you did not have access to dental care?: No Was dental information given to patient?: Patient has dentist HPI PE HPI Details History of Present Illness The patient is a 33-year-old female presenting with a routine physical examination. She has a history of bipolar disorder and is under regular care by a psychiatrist and psychologist. The patient underwent a gastric sleeve procedure in 2023 and has recently noticed weight gain. She acknowledges the need to monitor her diet and increase physical activity. 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 - Nutrition: Acknowledges the need to watch her diet. Review of Systems - Cardiovascular: Reports chest pain. - Respiratory: Reports dyspnea. - Gastrointestinal: Reports abdominal pain, blood in stool, constipation, and diarrhea. - Psychiatric: Denies suicidal ideation and homicidal ideation. Physical Exam General: Cooperative, healthy appearing, comfortable, no acute distress and well developed Orientation: Patient oriented x3 Limitations: No limitations Head: Normal to inspection Ears: Hearing grossly normal bilaterally Nose: Normal external nose present Face and sinus: Normal facial exam Eyes: Appearance normal, both eyes and all related structures Neck: Normal visual inspection and Yes full ROM Respiratory: Normal respiratory effort and able to speak in complete sentences. Clear to auscultation bilaterally Cardiovascular: Regular rate and rhythm. Normal S1 and S2 GI: soft nontender abd Skin: No rashes or lesions noted Neuro: Patient oriented x3 Extremities: Normal to inspection Results labs ordered, fasting Plan The patient will continue regular follow-ups with her psychiatrist and psychologist for management of bipolar disorder. She is advised to monitor her diet closely and increase physical activity to address recent weight gain post-gastric sleeve procedure. A follow-up appointment is scheduled in six months to assess progress in weight management and overall health. Patient Instructions - Continue regular psychiatric care. - Monitor diet and increase physical activity. - Return for follow-up in six months. [facility] Medical History (Updated 12/02/24 @ 10:12 by PIPO Dia) Bipolar 1 disorder induced hypertension Left shoulder pain Obesity Chronic fatigue Eczema GERD (gastroesophageal reflux disease) PCOS (polycystic ovarian syndrome) DDD (degenerative disc disease), cervical Depression with anxiety Surgical History History of sleeve gastrectomy History of gynecologic surgery History of section History of wisdom tooth extraction Family History Father HTN (hypertension) Mother HTN (hypertension) Brother No problems noted. Brother No problems noted. Brother No problems noted. Maternal Aunt Mental health disorder Maternal Uncle Mental health disorder Social History Housing: Apartment Alcohol intake: never Patient Tobacco Use Status: Never used Tobacco e-Cigarette/Vaping Use: Never Used Second Hand Smoke Exposure: No service: No Current occupational status: employed Current occupation: [employer] Current occupational exposures/hazards: Yes Cognitive needs: No Hearing needs: No Vision needs: No Questionnaire PHQ-9 Over the last 2 weeks, how often have you been bothered by any of the following problems? 1. Little interest or pleasure in doing things: several days 2. Feeling down, depressed, or hopeless: not at all 3. Trouble falling or staying asleep, or sleeping too much: several days 4. Feeling tired or having little energy: several days 5. Poor appetite or overeating: several days 6. Feeling bad about yourself - or that you are a failure or have let yourself or your family down: not at all 7. Trouble concentrating on things, such as reading the newspaper or watching television: more than half the days 8. Moving or speaking so slowly that other people could have noticed. Or the opposite - being so fidgety or restless that you have been moving around a lot more than usual: more than half the days 9. Thoughts that you would be better off or of hurting yourself in some way: not at all Total score: 8 Depression Screening Interpretation: Negative Depression Screening Done: Yes 45435 - PHQ-9 Billing: Yes Source: Developed by Drs. Riaz Pickens, Geraldine So, Demetris Hoffmann and colleagues, with an educational marsha from [employer]. Thrive Questionnaire Date Thrive assessed: 11/25/24 I am a: Patient What is your living situation today?: I have a steady place to live Within the past 12 months, did the food you bought not last and you didn't have the money to get more?: Never true Within the past 12 months, did you worry whether your food would run out before you got money to buy more?: Never true Do you have trouble paying for medicines?: No Do you have trouble getting transportation to medical appointments?: No Do you have trouble paying your heating and electricity bill?: No Do you have trouble taking care of your child, family member or friend?: No Do you have trouble with day-to-day activities such as bathing, preparing meals, shopping, managing finances, etc.?: No Are you currently unemployed and looking for a job?: No Are you interested in more education?: No Please select the resources that you would like help with: None Currently or been in a relationship where the following occur: No concerns reported THRIVE Score: 0 AUDIT C Alcohol Use Questionnaire (AUDIT-C) 1. How often do you have a drink containing alcohol?: Monthly or less Total Score: 1 DARRELL-7 AMB Questionnaire DARRELL-7 Date DARRELL - 7 assessed: 12/02/24 Feeling nervous, anxious, or on edge: 1 = Several days Not being able to stop or control worryin = Several days Worrying too much about different things: 1 = Several days Trouble relaxin = More than half the days Being so restless that it is hard to sit still: 2 = More than half the days Becoming easily annoyed or irritable: 1 = Several days Feeling afraid as if something awful might happen: 0 = Not at all Total DARRELL-7 score (0-4 normal; 5-9 mild; 10-14 moderate; 15-21 severe): 8 Source: Developed by Drs. Riaz Pickens, Geraldine So, Demetris Hoffmann and colleagues, with an educational marsha from [employer]. DARRELL-7 Assessment Billing DARRELL-7 Assessment Tool: DARRELL-7 Assessment 21475 Physical exam (Primary Care) Vital Signs: Last Vital Signs Temp 98.3 F 12/02/24 09:26 Pulse 78 12/02/24 09:26 Resp 16 12/02/24 09:26 BP 122/84 12/02/24 09:26 Oxygen Delivery Method Room Air 12/02/24 09:26 BMI result Body Mass Index 36.2 Tobacco/Smoking Status: Tobacco use Status Tobacco use date assessed 12/02/24 12/02/24 09:28 Patient Tobacco Use Status Never used Tobacco 12/02/24 09:28 e-Cigarette/Vaping Use Never Used 12/02/24 09:28 PHQ-9: PHQ-9 Score PHQ-9: Total score 8 12/02/24 09:28 Depression Screening Interpretation: Negative Thrive Assessment: Date of Thrive Assessment Date Thrive assessed 11/25/24 12/02/24 09:28 Currently or been in a relationship where the following occur: No concerns reported Coding Level of Care Code Est Pt Prev Care 18-39y(53078) Diagnoses Physical exam Z00.00 Vitamin D deficiency E55.9 Obesity E66.9 Additional Codes DARRELL-7 Assessment Billing - DARRELL-7 Assessment Tool: DARRELL-7 Assessment 34200 ([id number]) PHQ-9 - 35877 - PHQ-9 Billing: Yes ([id number]) Assessment & Plan Assessment & Plan (1) Physical exam: Code(s): Z00.00 - Encounter for general adult medical examination without abnormal findings Category: Medical (2) Vitamin D deficiency: Code(s): E55.9 - Vitamin D deficiency, unspecified Category: Medical (3) Obesity: Code(s): E66.9 - Obesity, unspecified Category: Medical Plan . Orders: Orders Complete Blood Count Auto Diff Today Z00.00 - Encounter for general adult medical examination without abnormal findings Comprehensive [place]. Panel Fast Today Z00.00 - Encounter for general adult medical examination without abnormal findings Vitamin D 25-OH Total Today E55.9 - Vitamin D deficiency, unspecified TSH reflex Free T4 Today Z00.00 - Encounter for general adult medical examination without abnormal findings UA CC w/rflx Micro + Cult Today Z00.00 - Encounter for general adult medical examination without abnormal findings Lipid Panel Today Z00.00 - Encounter for general adult medical examination without abnormal findings Medications: Discontinued cefuroxime axetil Discontinued Reason: Doctor's Order 500 mg PO Q12H 10 tabs 0RF
--- OUTSIDE RECORDS SUMMARY | 2024-12-02 09:40 | XMS_ITS | Referral Summary ---
Author Organization [facility] Address [address] [place] [address] Care Team Providers Care Synchronous Motor Assembler Name Role Phone Taylordedra Ry Owens Primary Care Provider Allergies No known active allergies Medications cholecalciferol (VITAMIN D3) 2,000 unit capsule [facility] Vitamin D 2000 UNIT CAPS Quantity: 30; Refills: 0 Started 14-Feb-2014 Active 02/14/2014 Active medroxyPROGESTE Clay (PROVERA) 10 mg tablet Take 1 tab by mouth every day for 10 days. 10 tablet 02/14/2023 Active Active Problems Problem Noted Date Diagnosed Date Irregular menstrual cycle 04/27/2014 Social History Tobacco Use Types Packs/Day Years Used Date Smoking Tobacco: Never Smokeless Tobacco: Never Tobacco Cessation:Counseling Given: Not Answered Comments No Sex and Gender Information Value Date Recorded Sex Assigned at Female 03/21/2020 1:15 PM EST Legal Sex Female 6:33 PM EDT Gender Identity Female 03/21/2020 1:15 PM EST Sexual Orientation Straight 03/21/2020 1: 15 PM EST Last Filed Vital Signs Vital Sign Reading Time Taken Comments Blood Pressure 155/98 06/13/2022 11:29 AM EST Pulse - - Temperature - - Respiratory Rate - - Oxygen Saturation - - Inhaled Oxygen Concentration - - Weight 111.1 kg (245 lb) 06/13/2022 11:29 AM EST Height 157.5 cm (5' 2 ) 06/13/2022 11:29 AM EST Body Mass Index 44.81 06/13/2022 11:29 AM EST Plan of Treatment Not on file [place] [address] [place] [address] MEDICAID Care Teams Synchronous Motor Assembler Relationship Specialty Start Date End Date Ry Lemos [address] [place] [address] PCP - General 03/21/20
--- OUTSIDE RECORDS SUMMARY | 2024-12-02 09:40 | XMS_ITS | Clinical Summary ---
Author Organization [facility] Address [address] [place] [address] Phone Care Team Providers Care Portrait Artist Name Role Phone Ry Lemos NP Primary Care Provider Allergies No known active allergies Medications acetaminophen (TYLENOL) 500 mg capsule Take 2 capsules (1,000 mg total) by mouth. 09/15/2023 Active busPIRone (BUSPAR) 10 mg tablet 06/20/2024 Active busPIRone (BUSPAR) 5 mg tablet Take 1 tablet (5 mg total) by mouth 2 (two) times a day. 05/31/2024 Active lamoTRIgine (LaMICtal) 25 mg tablet Take 1 tablet (25 mg total) by mouth 1 (one) time each day. 06/16/2024 Active pantoprazole (PROTONIX) 40 mg EC tablet TAKE 1 TABLET BY MOUTH EVERY DAY 90 tablet 1 06/29/2024 Active D3-2000 50 mcg (2,000 unit) capsule TAKE 1 CAPSULE BY MOUTH EVERY DAY 90 capsule 09/21/2024 Active Active Problems Problem Noted Date Diagnosed [...] PM EDT Office Visit Bariatric Surgery - [address] [place] [address] Holly Weinberg MD S/P bariatric surgery (Primary Dx); Obesity, Class I, BMI 30-34.9 from Last 3 Months Immunizations Name Administration [...] ovary syndrome 15yrs old Bipolar 1 disorder ([facility] V24, [facility] V28) psychiatrist- ama Swan, [facility] ( [...] for your loved ones. For example, child abuse worker or elderly care for an older adult? 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 GBS+ Last Filed Vital Signs Vital Sign Reading Time Taken Comments Blood Pressure 144/87 09/07/2024 3:33 PM EDT Pulse 66 09/07/2024 3:33 PM EDT Temperature 36.8 C (98.2 F) 09/07/2024 3:33 PM EDT Respiratory Rate 16 04/24/2024 2:12 PM EST [...] 03/31/2022 Hepatitis C Screening 03/31/2022 COVID-19 Vaccine (3 - 2023- season) 2023 10/02/2020, 09/11/2020 Influenza Vaccine (#1) 2024 , 02/20/2023, 02/20/2022, Additional history exists Social Influencers of Health Screening 04/24/2025 04/24/2024 DTaP,Tdap,and Td Vaccines (3 - Td or Tdap) 01/29/2029 01/29/2019, 11/01/2016 Cervical Cancer Screening: HPV 08/11/2029 08/11/2024 Depression Screening Completed 08/11/2024 HIB Vaccines Aged Out No longer eligi [...] 5 Years) and At-Risk Patients (6 to 49 Years) Aged Out No longer eligible based on patient's age to complete this topic RSV Immunization Patients Under 20 months Aged Out No longer eligible based on patient's age to complete this topic Varicella Vaccines Aged Out No longer eligible based on patient's age to complete this topic Procedures Procedure Name Priority Date/Time Associated Diagnosis Comments HPV WITH REFLEX GENOTYPE Routine 08/11/2024 11:08 AM EDT Encounter for well woman exam with routine gynecological exam Screening for cervical cancer from Last 3 Months or Most Recently Relevant to Health Maintenance Results * HPV with reflex genotype (08/11/2024 11:08 AM EDT) HPV Negative Negative LAB MICROBIOLOGY METHOD 08/12/2024 1:42 PM EDT [facility] Brushing/Spatula Cervix uteri structure / Unknown 08/11/2024 11:08 AM EDT 08/12/2024 5:43 AM EDT us Anabela ALATORRE LAB MOLECULAR DIAGNOSTICS ORD ERABLES Final Result [facility] ([facility]) [facility] [address] [place] [address], from Last 3 Months or Most Recently Relevant to Health Maintenance Insurance [facility] [employer] Care Teams Portrait Artist Relationship Specialty Start Date End Date Ry Lemos NP [address], [place] PCP - General 02/26/23
== END 2024-12-02 10:06 | disposition home or self-care (01) ==
LOC: HO.HMCC 09:16
PROVIDERS: PCP Nurse Practitioner Family; Visit Provider Nurse Practitioner Family
DX: Z00.00 Encounter for general adult medical examination without abnormal findings (principal); E55.9 Vitamin D deficiency, unspecified; E66.9 Obesity, unspecified; Z68.36 Body mass index [BMI] 36.0-36.9, adult

== ENCOUNTER 2024-12-21 10:21 | Outpatient (REF) | payer OTHER, SELFPAY ==
--- OUTSIDE RECORDS SUMMARY | 2023-02-24 09:30 | XMS_ITS | Continuity of Care Document ---
Author Organization [facility] Address [address] [place] [address] [address] [place] [address] Phone Care Team Providers Care Plating Engineer Name Role Phone Armond Garcia MD Unavailable Unavailable Procedures Procedure Date PT Did Not Receive Services Duplex Scan-extrem Veins; Comp Advance Directives Directive Yes / No Effective Date File Name No Information Encounters Encounter Description Practice Location Reason(s) For Visit Diagnoses Date Provider Providers Copied on Encounter [facility], [address] [place] [address], [id number], tel:[phone] [facility] [place] No Information 3 Radha Leahy. [facility] [address] [place], [address], . [phone] Referring Provider: Erick Scott, [address] [place] [address] [address], [address]. tel:[phone] [facility], [address] [place] [address] [address], [id number], tel:[phone] [facility] - [place] Chronic venous hypertension (idiopathic) with other complications of bilateral lower extremity 3 Blaise Joseph. [address] [place] [address], [address], [place], [id number] , . tel: [phone] Referring Provider: Erick Scott, [address] [facility] [address], [place], [address]. tel:[phone] Family History Family Member Type Diagnosis Age At Onset No Information Payers Payer name Insurance type Covered democrat ID Authoriza tion(s) No Information Social History Type Description Quantity Date Captured Comments Sex Female Smoking Status No Information Chief Complaint And Reason For Visit No Information Reason For Referral Reason For Referral No Information History Of Present Illness Encounter Date Complaint History Of Prese nt Illness No Information Functional Status Date Functional Assessmen t No Information Instructions Date Instruction Additional Infor mation No Information Assessments Type Assessment Date No Information Patient Care Teams Name Effective Dates (start - stop) Status Members No Information
--- OUTSIDE RECORDS SUMMARY | 2023-05-14 11:50 | XMS_ITS | Continuity of Care Document ---
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 [address], [id number] , [place]. tel:[phone] Referring Provider: Ry Lemos NP- [place], [address] [facility], [place], [address]. tel:[phone] Family History Family Member Type Diagnosis Age At Onset No Information Payers Payer name Insurance type Covered libertarian ID Authoriza tion(s) No Information Social History [...]
--- OUTSIDE RECORDS SUMMARY | 2024-12-21 11:02 | XMS_ITS | Clinical Summary ---
Author Organization [facility] Address [address] [place] [address] Phone Care Team Providers Care Boiling House Oiler Name Role Phone Ry Lemos NP Primary [...] Treat in labor Irregular menstrual cycle 04/27/2014 Immunizations Name Administration Dates Next Due Influenza [...] ovary syndrome 15yrs old Bipolar 1 disorder ([facility] V24, [facility] V28) psychiatrist- ama Swan, [facility] ( [...] care for your loved ones. For example, childcare center director or elderly care for an older adult? 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 Comments:Failed trial of labor after [...] COVID-19 Vaccine ( season) 2023 10/02/2020, 09/11/2020 Influenza Vaccine (#1) 2024 4, 02/20/2023, 02/20/2022, Additional history exists Social Influencers [...] LAB MICROBIOLOGY METHOD 08/12/2024 1:42 PM EDT [facility] ([facility]) [facility] Brushing/Spatula Cervix uteri structure / Unknown 08/11/2024 11:08 AM EDT 08/12/2024 5:43 AM EDT us Anabela Griffith CNM LAB MOLECULAR DIAGNOSTICS ORD ERABLES Final Result [facility] [address] [place] [address], from Last 3 Months or Most Recently Relevant to Health Maintenance Insurance [facility] [employer] Care Teams Boiling House Oiler Relationship Specialty Start Date End Date Ry Lemos NP [address] [place], [place] PCP - General 02/26/23
--- OUTSIDE RECORDS SUMMARY | 2024-12-21 11:02 | XMS_ITS | Clinical Summary ---
Author Organization [facility] Address [address] [place] [address] Care Team Providers Care Surgical Coder Name Role Phone Taylordedra Ry Owens Primary Care Provider [phone] Allergies No known active allergies Medications cholecalciferol [...] 06/13/2022 11:29 AM EST Plan of Treatment Health Maintenance Due Date Last Done Comments Cervical Cancer Screening 1988 HIV Screening 1988 HPV and Pap Smear 1988 Hepatitis C Screening 1988 Pap Smear 1988 Varicella Vaccines (1 of 2 - 13+ 2-dose series) 2001 Hepatitis B Vaccines (1 of 3 - 19+ 3-dose series) 12/04/2007 COVID-19 Vaccine (3 - season) 2023 10/02/2020, 09/11/2020 Alcohol/Substance Use Screening 04/28/2024 Depression Screening and Follow-Up 04/28/2024 Social Drivers of Health Annual Screening 04/28/2024 Influenza Vaccine (#1) 2024 , 02/20/2022, 01/18/2021, Additional history exists DTaP,Tdap,and Td Vaccines (3 - Td or Tdap) 01/29/2029 01/29/2019, 11/01/2016 RSV Vaccine (60+ years old and patients) (1 - 1-dose 75+ series) 12/04/2063 Pneumococcal Vaccine: Pediatric (0-5 Years) and At-Risk Patients (6-50 Years) Aged Out No longer eligible based on patient's age to complete this topic Insurance [place] [address] Care Teams Surgical Coder Relationship Specialty Start Date End Date Ry Lemos [address] [place] [address] PCP - General 03/21/20
[2024-12-21 13:48] LABS: Appearance Urine Clear; Glucose Urine UA Negative (Negative); PH 6.5 (5.0-9.0); Specific Gravity - Urine 1.010 (1.005-1.025)
== END 2024-12-21 10:22 | disposition home or self-care (01) ==
LOC: HO.HMGCLDS 10:21
PROVIDERS: PCP Nurse Practitioner Family; Visit Provider Nurse Practitioner Family
DX: Z00.00 Encounter for general adult medical examination without abnormal findings (principal)
CPT/HCPCS: 81003